=== PATIENT | female | born 1930 | race Caucasian/White ===

== ENCOUNTER 2016-11-16 11:19 | Inpatient (IN) | payer MEDICARE ==
[~2016-11-16] VITALS: Ht 162.6 cm; Wt 52.9 kg
[2016-11-16] VITALS (14 sets, daily range): BP systolic 108–150; BP diastolic 60–92; PULSE 77–100; RESP 12–25; TEMP 97.6–98.1; O2SAT 97–100
[~2016-11-16 11:19] MED LIST: ASPI-110 PO; BUPR150CR PO; CARV6.252 PO; CLOP75TA PO; DEXI30CA PO; ENAL10TA PO; FERR325T PO; FURO1TAB62 PO; ISOS5TAB PO; JANU50TA8 PO; LEVO75TA3 PO; LIPI20TA PO; POTA10TA8 PO; ZOLO100T PO
[2016-11-16] MEDS ORDERED: SODIUM CHLORIDE 0.9% FLUSH 5 ML FLUSH IVF PRN (11:45)
[2016-11-16] MEDS ORDERED: ASPIRIN 325 MG TAB PO ONE (11:45)
[2016-11-16] MEDS ORDERED: ASPIRIN EC 81 MG TABEC PO STA (11:52)
--- NOTE | 2016-11-16 12:01 | PD ---
HPI Chief Complaint: Chest Pain Time Seen by Provider: 11:55 Travel History International Travel<30 days: No Contact w/Intl Traveler<30days: No Traveled to known affect area: No History of Present Illness HPI 86-year-old female that presents to the ED for evaluation of possible heart disease. Patient does have a history of significant heart disease and on April had a catheter that shows severe disease to 3 different arteries. Patient apparently was not a candidate for stenting or for bypass secondary to her dementia, possible cancer as well as other comorbidities. Patient has been treated medically for this. Patient has seen her sociology instructor. Per patient and who provides most of the information she's been having some discomfort in her throat that goes to her chest for the past 3 days but worse last night. Per patient the pain is severe, burning. Comes and goes. Per patient this does not feel anything like her previous time when she was admitted for the heart cath in April but she states that he feels close to it. She denies any shortness of breath. No trauma. No recent travel. Denies any cough or runny nose. She states that her pain is 7 out of 10. She takes Plavix. She denies taking any nitroglycerin. She does have a history of hypertension, diabetes, heart disease on herself as well as all history of smoking. Denies any abdominal pain. No nausea or vomiting. No problems with bowel movements or urine. No numbness, tingling, weakness. PFSH Past Medical History Arthritis: Yes Anxiety: Yes Depression: Yes Cancer: No Cardiac Catheterization: Yes (04/2016) Cardiovascular Problems: Yes High Cholesterol: Yes Congestive Heart Failure: Yes Dementia: Yes Diabetes: Yes Patient Takes Glucophage: No Diminished Hearing: No Endocrine: Yes (hypothyroidism) Gastrointestinal Disorders: Yes GERD: Yes Genitourinary: No Headaches: Yes Hypertension: Yes Implanted Vascular Access Dvce: No Musculoskeletal: Yes (arthritis) Neurologic: Yes Reproductive: No Respiratory: Yes (this admit SOB) Immunizations Current: No Pneumonia: Yes Thyroid Disease: Yes (hypothyroidism) Tetanus Vaccination: < 5 Years Influenza Vaccination: Yes ?: Not Menopausal: Yes : 6 Para: 5 Miscarriage: 1 Tubal Ligation: Yes Past Surgical History Eye Surgery: Yes (BILAT. CATARACTS) Tonsillectomy: Yes Other Surgery: Yes (BACK SX. AND HEMMROIDECTOMY) Social History Alcohol Use: No Tobacco Use: No (QUIT) Substance Use: No Allergies-Medications (Allergen,Severity, Reaction): Coded Allergies: Sulfa (Verified Allergy, Intermediate, Rash, 11/16/16) Macrobid (Unverified Allergy, Unknown, 11/16/16) Hydrocodone (Unverified Adverse Reaction, Mild, nausea, 11/16/16) Reported Meds & Prescriptions Reported Meds & Active Scripts Active Reported Magnesium Oxide 400 Mg Tab 400 Mg PO DAILY @ 1400 Megace Liq (Megestrol Acetate) 40 Mg/Ml Susp 400 Mg PO BID Dexilant (Dexlansoprazole) 60 Mg Cap 60 Mg PO DAILY Levothyroxine (Levothyroxine Sodium) 100 Mcg Tab 100 Mcg PO DAILY Aspirin 81 (Aspirin) 81 Mg Tabdr 81 Mg PO DAILY @ 1400 Janumet (Sitagliptin-Metformin) 50-1,000 Mg Tab 1 Tab PO BID Zoloft (Sertraline HCl) 100 Mg Tab 100 Mg PO DAILY @ 1400 Lipitor (Atorvastatin Calcium) 20 Mg Tab 20 Mg PO HS Isosorbide Dinitrate 5 Mg Tab 5 Mg PO TID Ferrous Sulfate 325 Mg Tab 325 Mg PO DAILY @ 1400 Clopidogrel (Clopidogrel Bisulfate) 75 Mg Tab 75 Mg PO DAILY Carvedilol 6.25 Mg Tab 6.25 Mg PO BID Wellbutrin SR 12 HR (Bupropion HCl) 150 Mg Tab 150 Mg PO DAILY Review of Systems ROS Limitations: Poor Historian Except as stated in HPI: all other systems reviewed are Neg Physical Exam Exam Limitations: Poor Historian Narrative GENERAL: SKIN: Warm and dry. HEAD: Atraumatic. Normocephalic. EYES: Pupils equal and round 4 mm reactive to light and accommodation. No scleral icterus. No injection or drainage. ENT: No nasal bleeding or discharge. Mucous membranes pink and moist. Tongue is midline. No uvula deviation. Tonsils are not enlarged or swollen. No erythema noted. NECK: Trachea midline. No JVD. CARDIOVASCULAR: Regular rate and rhythm. No murmurs, S3, S4. RESPIRATORY: No accessory muscle use. Clear to auscultation. Breath sounds equal bilaterally. GASTROINTESTINAL: Abdomen soft, non-tender, nondistended. Hepatic and splenic margins not palpable. MUSCULOSKELETAL: Extremities without clubbing, cyanosis, or edema. No obvious deformities. Full range of motion of the upper and lower extremities bilaterally. Chest pain is not reproducible with touch. Pupils pulses bilaterally. NEUROLOGICAL: Awake and alert. No obvious cranial nerve deficits. Motor grossly within normal limits. Five out of 5 muscle strength in the arms and legs. Normal speech. PSYCHIATRIC: Demented mood and affect; insight and judgment normal. Data Data Last Documented VS Vital Signs Date Time Temp Pulse Resp B/P Pulse Ox O2 Delivery O2 Flow Rate FiO2 11/16/16 12:05 98 Room Air 11/16/16 12:00 77 135/63 2 11/16/16 11:39 97.9 16 Orders Electrocardiogram (11/16/16 11:34) Basic Metabolic Panel (Bmp) (11/16/16 11:34) Ckmb (Isoenzyme) Profile (11/16/16 11:34) Complete Blood Count With Diff (11/16/16 11:34) Magnesium (Mg) (11/16/16 11:34) Prothrombin Time / Inr (Pt) (11/16/16 11:34) Act Partial Throm Time (Ptt) (11/16/16 11:34) Troponin I (11/16/16 11:34) Chest, Single Ap (11/16/16 11:34) Ecg Monitoring (11/16/16 11:34) Bilateral Bp Monitoring (11/16/16 11:34) Iv Access Insert/Monitor (11/16/16 11:34) Oximetry (11/16/16 11:34) Oxygen Administration (11/16/16 11:34) Aspirin (Aspirin) (11/16/16 11:45) Sodium Chloride 0.9% Flush (Ns Flush) (11/16/16 11:45) Hepatic Functional Panel (11/16/16 11:47) Aspirin Ec (Ecotrin Ec) (11/16/16 11:52) Heparin Infusion NICHOLE.Q1H (11/16/16 12:13) Heparin Inj (Heparin Inj) (11/16/16 12:15) Heparin-D5w Inj (Heparin-D5w Inj) (11/16/16 12:15) Cbc No Diff, Includes Plts (11/19/16 06:00) Act Partial Throm Time (Ptt) (11/16/16 19:13) Occult Blood (Hemoccult) Stool (11/16/16 12:13) Admit Order (Ed Use Only) (11/16/16 12:59) Labs Laboratory Tests Test 11/16/16 11:55 White Blood Count 6.2 TH/MM3 Red Blood Count 3.42 MIL/MM3 Hemoglobin 11.0 GM/DL Hematocrit 31.8 % Mean Corpuscular Volume 93.0 FL Mean Corpuscular Hemoglobin 32.1 PG Mean Corpuscular Hemoglobin 34.5 % Concent Red Cell Distribution Width 15.3 % Platelet Count 190 TH/MM3 Mean Platelet Volume 8.7 FL Neutrophils (%) (Auto) 82.6 % Lymphocytes (%) (Auto) 9.9 % Monocytes (%) (Auto) 5.0 % Eosinophils (%) (Auto) 1.8 % Basophils (%) (Auto) 0.7 % Neutrophils # (Auto) 5.1 TH/MM3 Lymphocytes # (Auto) 0.6 TH/MM3 Monocytes # (Auto) 0.3 TH/MM3 Eosinophils # (Auto) 0.1 TH/MM3 Basophils # (Auto) 0.0 TH/MM3 CBC Comment AUTO DIFF Prothrombin Time 12.6 SEC Prothromb Time International 1.1 RATIO Ratio Activated Partial 22.6 SEC Thromboplast Time Sodium Level 137 MEQ/L Potassium Level 4.2 MEQ/L Chloride Level 107 MEQ/L Carbon Dioxide Level 20.4 MEQ/L Anion Gap 10 MEQ/L Blood Urea Nitrogen 22 MG/DL Creatinine 1.41 MG/DL Estimat Glomerular Filtration 36 ML/MIN Rate Random Glucose 149 MG/DL Calcium Level 8.9 MG/DL Magnesium Level 1.3 MG/DL Total Creatine Kinase 35 U/L Troponin I 0.12 NG/ML MDM Medical Decision Making Medical Screen Exam Complete: Yes Emergency Medical Condition: Yes Medical Record Reviewed: Yes Interpretation(s) CBC & BMP Diagram 11/16/16 11:55 Troponin is elevated at 0.12. CK-MB negative. CXR negative PT and PTT within normal limits. EKG shows sinus rhythm with no sign of acute ischemia. Patient does have new T- wave inversion in lead V3 but otherwise unremarkable from previous. Read by me and attending. Differential Diagnosis ACS versus STEMI versus an STEMI versus unstable angina versus angina versus sore throat versus dysmenorrhea versus electrolyte abnormality versus heart disease Narrative Course 86-year-old female that presents to the ED for evaluation of possible angina. Patient was properly examined and was found to have signs and symptoms consistent with appears to be unstable angina. Patient does have a history significant cardiac history and three-vessel disease. Patient's currently being medically managed. Recommendation at this time is for labs and imaging. My attending Dr. Lebron recommends starting of heparin as well as infusion. This was discussed with the family who agree with plan. Patient will likely be admitted for unstable angina. Family agrees first to proceed with this plan. Initial labs and imaging showed what appears to be in STEMI at this time. My attending recommends admission to medicine. Patient was admitted to Dr. Harper who agrees to admission. Procedures EKG Prior to Arrival: No Diagnosis Primary Impression: NSTEMI (non-ST elevated myocardial infarction) Additional Impression: Acute renal failure Qualified Code: N17.9 - Acute renal failure, unspecified acute renal failure type Admitting Information Admitting Physician Requests: Dimitri Aquino Nov 16, 2016 12:01
[2016-11-16] MEDS ORDERED: LEVO100T5 PO (12:05)
[2016-11-16] MEDS ORDERED: HEPARIN SODIUM - IV 10,000 UNITS/10 ML VIAL IV ONE (12:15)
[2016-11-16] MEDS ORDERED: HEPARIN-D5W INJ 250 ML IV SCH (12:15)
[2016-11-16] MEDS ORDERED: DEXI60CA PO (12:15)
[2016-11-16 12:16] LABS: AUTOMATED NEUTROPHIL # 5.1 TH/MM3 (1.8-7.7); BASOPHIL % 0.7 % (0.0-2.0); EOSINOPHIL # 0.1 TH/MM3 (0-0.4); EOSINOPHIL % 1.8 % (0.0-4.0); HEMATOCRIT 31.8 % (35.0-46.0); LYMPH % 9.9 % (9.0-44.0); LYMPHOCYTE # 0.6 TH/MM3 (1.0-4.8); MEAN CORPUSCULAR HEMOGLOBIN 32.1 PG (27.0-34.0); MEAN CORPUSCULAR HGB CONC 34.5 % (32.0-36.0); NEUT % 82.6 % (16.0-70.0); PLATELET COUNT 190 TH/MM3 (150-450); RED BLOOD COUNT 3.42 MIL/MM3 (4.00-5.30); RED CELL DISTRIBUTION WIDTH 15.3 % (11.6-17.2); WHITE BLOOD COUNT 6.2 TH/MM3 (4.0-11.0)
[2016-11-16] MEDS ORDERED: MAGN400T2 PO (12:16)
[2016-11-16] MEDS ORDERED: MEGE40S PO (12:16)
[2016-11-16 12:20] LABS: APTT (PATIENT) 22.6 SEC (24.3-30.1); HEMO FLAGS AUTO DIFF; INTERNATIONAL NORMALIZED RATIO 1.1 RATIO; PROTHROMBIN TIME - PATIENT 12.6 SEC (9.8-11.6)
[2016-11-16 12:25] LABS: BICARBONATE 20.4 MEQ/L (21.0-32.0); MAGNESIUM 1.3 MG/DL (1.5-2.5); POTASSIUM 4.2 MEQ/L (3.5-5.1)
--- NOTE | 2016-11-16 12:34 | RADRPT ---
EXAM DATE/TIME: 11/16/2016 12:19 [facility] COMPARISON: CHEST SINGLE AP, September 11, 2016, 10:13. INDICATIONS : Chest Pain MEDICAL HISTORY : Hypertension. Dementia SURGICAL HISTORY : Tubal ligation. ENCOUNTER: Initial ACUITY: 1 day PAIN SCORE: 8/10 LOCATION: Bilateral chest FINDINGS: A single view of the chest demonstrates the lungs to be symmetrically aerated without evidence of mas s, infiltrate or effusion. The cardiomediastinal contours are unremarkable. Osseous structures are intact. CONCLUSION: Stable chest with no acute disease Nilton Chu MD on November 16, 2016 at 12:32 Board Certified Radiologist. This report was verified electronically.
--- NOTE | 2016-11-16 12:50 | PD ---
Physical Exam Date Seen by Provider: Nov 16, 2016 Time Seen by Provider: 12:44 Narrative 86-year-old female came to the emergency room brought by her after being awake the entire night from pain in her jaw bilaterally going up to her ears and throat and sometimes traveling down to her chest. Patient has history of coronary artery disease. She had a heart catheterization done in April of last year which showed severe triple vessel disease. However she was not a candidate for CABG because of her poor medical condition and multiple comorbidities. Patient has history of mild dementia and her is giving all the history thoroughly. Currently she does not appear to be in any distress. Patient was seen by my PA and I'm supervising him. Given the story and the classic nature of the pain and its radiation I asked him to start the patient on heparin bolus and drip. She is unstable angina until proven otherwise. Patient would require admission. Blood test results came back and her troponin is bumped. Awaiting for the residents to call back for admission. is aware of this plan and is comfortable with that. Data Data Last Documented VS Vital Signs Date Time Temp Pulse Resp B/P Pulse Ox O2 Delivery O2 Flow Rate FiO2 11/16/16 12:05 98 Room Air 11/16/16 12:00 77 135/63 2 11/16/16 11:39 97.9 16 Orders Electrocardiogram (11/16/16 11:34) Basic Metabolic Panel (Bmp) (11/16/16 11:34) Ckmb (Isoenzyme) Profile (11/16/16 11:34) Complete Blood Count With Diff (11/16/16 11:34) Magnesium (Mg) (11/16/16 11:34) Prothrombin Time / Inr (Pt) (11/16/16 11:34) Act Partial Throm Time (Ptt) (11/16/16 11:34) Troponin I (11/16/16 11:34) Chest, Single Ap (11/16/16 11:34) Ecg Monitoring (11/16/16 11:34) Bilateral Bp Monitoring (11/16/16 11:34) Iv Access Insert/Monitor (11/16/16 11:34) Oximetry (11/16/16 11:34) Oxygen Administration (11/16/16 11:34) Aspirin (Aspirin) (11/16/16 11:45) Sodium Chloride 0.9% Flush (Ns Flush) (11/16/16 11:45) Hepatic Functional Panel (11/16/16 11:47) Aspirin Ec (Ecotrin Ec) (11/16/16 11:52) Heparin Infusion NICHOLE.Q1H (11/16/16 12:13) Heparin Inj (Heparin Inj) (11/16/16 12:15) Heparin-D5w Inj (Heparin-D5w Inj) (11/16/16 12:15) Cbc No Diff, Includes Plts (11/19/16 06:00) Act Partial Throm Time (Ptt) (11/16/16 19:13) Occult Blood (Hemoccult) Stool (11/16/16 12:13) Admit Order (Ed Use Only) (11/16/16 12:59) Labs Laboratory Tests Test 11/16/16 11:55 White Blood Count 6.2 TH/MM3 Red Blood Count 3.42 MIL/MM3 Hemoglobin 11.0 GM/DL Hematocrit 31.8 % Mean Corpuscular Volume 93.0 FL Mean Corpuscular Hemoglobin 32.1 PG Mean Corpuscular Hemoglobin 34.5 % Concent Red Cell Distribution Width 15.3 % Platelet Count 190 TH/MM3 Mean Platelet Volume 8.7 FL Neutrophils (%) (Auto) 82.6 % Lymphocytes (%) (Auto) 9.9 % Monocytes (%) (Auto) 5.0 % Eosinophils (%) (Auto) 1.8 % Basophils (%) (Auto) 0.7 % Neutrophils # (Auto) 5.1 TH/MM3 Lymphocytes # (Auto) 0.6 TH/MM3 Monocytes # (Auto) 0.3 TH/MM3 Eosinophils # (Auto) 0.1 TH/MM3 Basophils # (Auto) 0.0 TH/MM3 CBC Comment AUTO DIFF Differential Comment AUTO DIFF CONFIRMED Tear Drop Cells 1+ Ovalocytes 2+ Prothrombin Time 12.6 SEC Prothromb Time International 1.1 RATIO Ratio Activated Partial 22.6 SEC Thromboplast Time Sodium Level 137 MEQ/L Potassium Level 4.2 MEQ/L Chloride Level 107 MEQ/L Carbon Dioxide Level 20.4 MEQ/L Anion Gap 10 MEQ/L Blood Urea Nitrogen 22 MG/DL Creatinine 1.41 MG/DL Estimat Glomerular Filtration 36 ML/MIN Rate Random Glucose 149 MG/DL Calcium Level 8.9 MG/DL Magnesium Level 1.3 MG/DL Total Bilirubin 0.3 MG/DL Direct Bilirubin 0.1 MG/DL Indirect Bilirubin 0.2 MG/DL Aspartate Amino Transf 13 U/L (AST/SGOT) Alanine Aminotransferase 12 U/L (ALT/SGPT) Alkaline Phosphatase 51 U/L Total Creatine Kinase 35 U/L Troponin I 0.12 NG/ML Total Protein 7.2 GM/DL Albumin 3.5 GM/DL [facility] Supervised Visit with SOFIA: Yes Interpretation(s) Twelve-lead EKG was reviewed by me. Normal sinus rhythm, left axis deviation, LVH, lateral ST and T-wave depression that is unchanged from 05/15/2016. Heart rate of 85 bpm. Critical Care Narrative Aggregate critical care time was 30 minutes. Time to perform other separately billable procedures was not included in the critical care time. My time did not include minutes spent treating any other patients simultaneously or on activities that did not directly contribute to the patient's treatment. The services I provided to this patient were to treat and/or prevent clinically significant deterioration that could result in: Non-STEMI, heparin bolus and drip I provided critical care services requiring my management, as noted below: Chart data review, documentation time, medication orders and management, vital sign assessments/reviewing monitor data, ordering and reviewing lab tests, ordering and interpreting/reviewing x-rays and diagnostic studies, care of the patient and discussion of the patient with the admitting physicians. Juan Lebron MD Nov 16, 2016 12:50
[2016-11-16 13:14] LABS: OVALOCYTES 2+ (NORMAL); SCAN/DIFF AUTO DIFF CONFIRMED
[2016-11-16 13:15] LABS: TEARDROP RBCS 1+ (NORMAL)
[2016-11-16] MEDS ORDERED: ACETAMINOPHEN 325 MG TAB PO PRN (13:15)
[2016-11-16] MEDS ORDERED: GLUCAGON 1 MG/ML VIAL OTHER PRN (13:15)
[2016-11-16] MEDS ORDERED: NALOXONE HCL 0.4 MG/ML AMP IV PRN (13:15)
[2016-11-16] MEDS ORDERED: DEXTROSE 50% IN WATER 50 ML VIAL(D50) IV PUSH PRN (13:15)
[2016-11-16] MEDS ORDERED: SODIUM CHLORIDE 0.9% FLUSH 5 ML FLUSH FLUSH PRN (13:15)
--- NOTE | 2016-11-16 14:27 | EKG ---
Date Performed: 11/16/2016 Time Performed: 11:34:25 PTAGE: 86 years EKG: Sinus rhythm WITH SINUS ARRHYTHMIA LEFT VENTRICULAR HYPERTROPHY AND ST-T CHANGE ABNORMAL ECG Compared to prior tr acing no significant change PREVIOUS TRACING : 09/11/2016 09.53 DOCTOR: Chon Moore Interpretating Date/Time 11/16/2016 14:26:25
[2016-11-16] MEDS: NITROGLYCERIN 2% OINT 1 GM PACKET TOPICAL SCH ×2 (14:47→22:12)
[2016-11-16 14:51] LABS: INDIRECT BILIRUBIN 0.2 MG/DL (0.0-0.8); TOTAL BILIRUBIN ADULT 0.3 MG/DL (0.2-1.0)
[2016-11-16] MEDS: INSULIN ASPART SUPPLEMENTAL SCALE SQ SCH ×2 (16:00→21:00)
[2016-11-16] MEDS: RANOLAZINE 500 MG EXTENDED RELEASE TAB PO SCH ×2 (16:57→22:12)
[2016-11-16] MEDS ORDERED: MAGNESIUM SULFATE 1 GM PREMIX 100 ML IV ONE (17:45)
--- NOTE | 2016-11-16 18:34 | MH ---
cc: CHAR CASTILLO M.D. DATE OF ADMISSION: 11/16/2016 ADMISSION DIAGNOSIS Chest pain, possible unstable angina, history of coronary artery disease. HISTORY OF PRESENT ILLNESS This 86-year white female well-known to undersigned physician has a history of severe coronary artery disease which was diagnosed approximately six months ago. The patient had a cardiac catheterization and it was thought that the patient could benefit from coronary artery bypass graft surgery. However, with her multiple comorbidities it was felt that she would not be a good candidate. Medical management was maximized. The patient has been doing well with regard to her coronary disease, but on the evening prior to admission she began to experience substernal burning sensation and a discomfort which she describes as a pain which radiated up to the bilateral jaws and then up to the bilateral forehead which she described then as a persistent headache. She did not sleep well throughout the whole night and in the morning, she was having persistent symptoms so her brought her to the emergency room for further evaluation and treatment. She had no shortness of breath or diaphoresis. There was no nausea. The patient states that she has had similar episodes which she thought were relayed to her gastroesophageal reflux disease, but they were never this severe. The patient has been taking her Dexilant for her gastroesophageal reflux disease. The patient has been compliant with all of her other medications. History is difficult due to the patient's dementia. She has difficulty with recalling all the specifics of the events over the last several days. At the current time, she reports that she had no chest pain at all but she does have a discomfort in her throat when she swallows or cough but there has been no persistent chest pain otherwise. The patient denies any abdominal pain. She has had no nausea. Her bowels have been moving well. She has a diminished appetite which has been chronic for the last year. She has lost a considerable amount of weight. She is currently on Megestrol as an appetite stimulant. She has been sleeping well. She is anxious at times which is associated with her dementia. She also has instability of gait and intermittent benign positional vertigo. She has fallen multiple times at home as she forgets to use her walker. She has been through a course of physical therapy but has reached maximum medical improvement according to therapy. She has had no sputum production, fever, chills, night sweats. She has had no visual changes, tremors or lateralizing neurologic deficits. PAST MEDICAL HISTORY 1. Coronary artery disease as mentioned above. on your view as 2. Collagenase colitis which is in remission 3. Diabetes, 4. Hypertension, 5. Hyperlipidemia, 6. Generalized anxiety disorder, 7. Gastroesophageal reflux disease, 8. Hypothyroidism, 9. Significant weight loss over the last year for which she is undergoing a GI evaluation. Her recent upper endoscopy and colonoscopy were unremarkable. She recently had a capsule endoscopy performed and the results are pending. 10. History of peptic ulcer disease. 11. History of urethral strictures 12. Diverticulosis, 13. Hemorrhoids 14. Cervical and lumbar disk disease with intermittent radiculitis 15. Generalized osteoarthritis 16. Hiatal hernia, 17. Depression, 18. History of esophageal strictures 19. Intermittent benign positional vertigo 20. History of a C6-7 cervical fusion 21. Partial knee replacement in 2003. 22. Recent cardiac catheterization revealed severe three-vessel atherosclerotic heart disease with severe left main bifurcation stenosis. Moderate left ventricular dysfunction with ejection fraction of approximately 40%. 23. Recent history of iron deficiency anemia for she receives iron supplement and is undergoing the GI evaluation. 24. History of moderate mild to moderate dementia. MEDICATIONS Current are as follows 1. Magnesium oxide 400 mg daily. 2. Wellbutrin XL 150 mg daily. 3. Sertraline 100 mg daily 4. Megestrol 400 mg twice daily, 5. Carvedilol 6.25 mg twice daily 6. Janumet mg 1 tablet twice daily, 7. Atorvastatin 20 mg daily, 8. Ferrous sulfate 325 mg daily, 9. Isosorbide dinitrate 5 mg three times daily 10. Aspirin 81 mg 1 tablet daily, 11. Plavix 75 mg 1 tablet daily 12. Dexilant 60 mg 1 capsule daily 13. Levofloxacin 100 mcg daily. ALLERGIES HYDROCODONE - GI UPSET MACROBID - NAUSEA SULFA - UNKNOWN REACTION FAMILY HISTORY Noncontributory SOCIAL HISTORY She is , retired. She does not smoke, but she did smoke in the past. She does not drink alcohol. She currently lives with her . REVIEW OF SYSTEMS Negative except as outlined above in HPI. PHYSICAL EXAMINATION VITAL SIGNS: Blood pressure currently is 127/65, heart rate 96, respirations 20, oxygen saturation on 2 liters per minute per nasal cannula is 100%. GENERAL: This is a think, frail elderly white female lying in bed in no acute distress. HEENT: Pupils equal, round, react to light. Extraocular movements are intact. Sclerae aniteric. Conjunctive were pink. Nares patent without discharge. Mouth and throat reveal moist mucous membranes. No erythema or exudates. NECK: Supple without lymphadenopathy, JVD, bruits or thyromegaly. CARDIOVASCULAR: Regular rate and rhythm without murmurs, rubs or gallops. LUNGS: Clear to auscultation without wheezes, rhonchi or rales. ABDOMEN: Soft, nontender, nondistended with bowel sounds present no mass palpable, no hepatosplenomegaly. GENITOURINARY/RECTAL: Deferred. EXTREMITIES: Lower extremities Reveal no appreciable edema, 2+ distal pulses. No calf tenderness. No Homans' sign. SKIN: Warm and dry. Turgor is adequate. The skin is generally dry. NEUROLOGIC: The patient is awake and alert. She is oriented to person, place but not to time. Speech is intact. Cranial nerves intact. She has some mild short-term memory deficits. She is essentially at her baseline. LABORATORY DATA White blood count is 6.2, hemoglobin 11.0, hematocrit 31.8, platelet count normal at 190,000. Basic metabolic profile was significant for carbon dioxide of 20.4, BUN was 22, creatinine 1.41. The glucose is 149, magnesium was low at 1.3. Troponin was 0.12 which was elevated but CK was normal at 35. The INR was 1.1, APTT 22.6. IMAGING STUDIES Chest x-ray revealed stable chest with no acute disease. CARDIOLOGY STUDIES EKG showed sinus rhythm with a rate of 85 beats per minute, axis was -5 degrees. There are changes consistent with LVH with a strain pattern in the V3-V6. The EKG is not significantly changed from prior study. IMPRESSION AND PLAN 1. This 86-year white female presents with substernal chest pain radiating to bilateral jaw. Her troponin was elevated, so we must consider the possibility of underlying cardiac etiology. The patient was given nitroglycerin paste, was placed on a heparin drip by the emergency department physician's legal administrative assistant. The patient will be admitted for rule out acute coronary syndrome. We will perform serial EKGs and cardiac enzymes. Based on the patient's clinical presentation, this is an atypical presentation for acute coronary syndrome but the patient does have diabetes which could alter her presentation. I have consulted Cardiology and Dr. Deglado has seen the patient as he is covering for the patient's dehairer, Dr. Bagley. He has started Ranexa. We will monitor the patient closely for any recurrent chest discomfort. Other possible etiologies include gastroesophageal reflux disease with esophageal spasm. I am going to continue the patient on PPI in the form of pantoprazole as Dexilant is not formulary. We will add some Carafate to the patient's regimen to see if we can treat underlying esophagitis. The patient will be placed on a heart healthy diet and continue with supplemental oxygen. She will be placed in the cardiac intensive care unit with close monitoring of her telemetry. 2. History of diabetes. The patient will continue with Januvia and metformin. We will monitor her blood sugars with bedside glucose monitoring, provide a sliding scale of NovoLog insulin if needed. 3. History of hypothyroidism. The patient had a TSH that was elevated during her last hospitalization. Her thyroid dosage was adjusted. We will repeat a TSH in the morning and adjust dosage to maintain therapeutic replacement as needed. 4. History of iron-deficiency anemia. The patient is undergoing a workup and she just completed a capsule endoscopy and the results are not available as of yet. We will continue with the ferrous sulfate, check iron levels. The hemoglobin is still low but overall stable. 5. Dementia with anxiety. The patient's mental status is at baseline. At this point, I would like to continue with the Wellbutrin and sertraline. The patient does not appear to be anxious at this point. If necessary, we will provide her with some alprazolam. 6. Loss of appetite/weight loss. The patient will continue with Megesterol. We will monitor intake and output closely. 6. Hypomagnesemia. The patient will continue with magnesium oxide 40 mg daily. We will repeat a magnesium level in the morning and adjust dosage as needed. May need to give some IV magnesium as oral magnesium a contribute to loose stools. I have explained the patient's condition to both the patient and her son, daughter and son-in-law who are at the bedside. All expressed understanding and agreement with the plan of care. MD AMRITA Tristan/ /5:22 PM /5:56 PM
[2016-11-16] MEDS ORDERED: ALUMINUM/MAGNESIUM/SIMETH 30 ML CUP PO PRN (19:15)
[2016-11-16] MEDS: SODIUM CHLORIDE 0.9% FLUSH 5 ML FLUSH FLUSH SCH (21:00)
[2016-11-16] MEDS: metFORMIN HCL 500 MG TAB PO SCH (22:11)
[2016-11-16] MEDS: ATORVASTATIN 20 MG TAB PO SCH (22:12)
[2016-11-16] MEDS: SUCRALFATE 1 GM/10 ML CUP PO SCH (22:12)
[2016-11-16] MEDS: MEGESTROL ACETATE SUSP 400 MG/10 ML CUP PO SCH (22:12)
[2016-11-16] MEDS: CARVEDILOL 6.25 MG TAB PO SCH (22:13)
[2016-11-17] VITALS (23 sets, daily range): BP systolic 89–130; BP diastolic 60–73; PULSE 78–99; RESP 16–18; TEMP 97.7–97.9; O2SAT 97–99
[2016-11-17 02:44] LABS: APTT (PATIENT) 35.1 SEC (24.3-30.1)
[2016-11-17 04:46] LABS: ALKALINE PHOSPHATASE 48 U/L (45-117); ALT (GPT) 10 U/L (10-53); ANION GAP 9 MEQ/L (5-15); AST (GOT) 8 U/L (15-37); BICARBONATE 22.3 MEQ/L (21.0-32.0); BLOOD UREA NITROGEN 19 MG/DL (7-18); CHLORIDE 106 MEQ/L (98-107); FERRITIN 70 NG/ML (8-252); GLOMERULAR FILTRATION RATE 46 ML/MIN (>89); HDL CHOLESTEROL 25.5 MG/DL (40.0-60.0); LDL CHOLESTEROL 58 MG/DL (0-99); MAGNESIUM 1.5 MG/DL (1.5-2.5); POTASSIUM 3.9 MEQ/L (3.5-5.1); SODIUM (NA) 137 MEQ/L (136-145); TOTAL BILIRUBIN ADULT 0.3 MG/DL (0.2-1.0); TRANSFERRIN IRON PROFILE 215 MG/DL (200-360)
[2016-11-17] MEDS: INSULIN ASPART SUPPLEMENTAL SCALE SQ SCH ×4 (07:00→21:00)
[2016-11-17] MEDS: NITROGLYCERIN 2% OINT 1 GM PACKET TOPICAL SCH ×3 (07:15→22:24)
[2016-11-17] MEDS: SUCRALFATE 1 GM/10 ML CUP PO SCH ×4 (07:15→22:23)
[2016-11-17] MEDS: LEVOTHYROXINE SODIUM 100 MCG TAB PO SCH (07:15)
[2016-11-17] MEDS: MAGNESIUM OXIDE 400 MG TAB PO SCH (09:22)
[2016-11-17] MEDS: FERROUS SULFATE 325 MG (65 MG ELEMENTAL IRON) TAB PO SCH (09:22)
[2016-11-17] MEDS: ASPIRIN EC 81 MG TABEC PO SCH (09:22)
[2016-11-17] MEDS: MEGESTROL ACETATE SUSP 400 MG/10 ML CUP PO SCH ×2 (09:22→22:24)
[2016-11-17] MEDS: CLOPIDOGREL 75 MG TAB PO SCH (09:22)
[2016-11-17] MEDS: PANTOPRAZOLE SOD 40 MG DELAYED RELEASE TAB PO SCH (09:22)
[2016-11-17] MEDS: CARVEDILOL 6.25 MG TAB PO SCH ×2 (09:22→22:24)
[2016-11-17] MEDS: SERTRALINE HCL 100 MG TAB PO SCH (09:22)
[2016-11-17] MEDS: buPROPion HCL 150 MG SUSTAINED RELEASE TAB PO SCH (09:22)
[2016-11-17] MEDS: SODIUM CHLORIDE 0.9% FLUSH 5 ML FLUSH FLUSH SCH ×2 (09:23→22:24)
[2016-11-17] MEDS: RANOLAZINE 500 MG EXTENDED RELEASE TAB PO SCH ×2 (09:23→22:22)
[2016-11-17] MEDS: metFORMIN HCL 500 MG TAB PO SCH ×2 (09:23→22:22)
--- NOTE | 2016-11-17 09:45 | PD.CARD.PN ---
Subjective Subjective Remarks Having pain on swallowing food coffee. Not sure if angina Objective Vital Signs / I&O Vital Signs Date Time Temp Pulse Resp B/P Pulse Ox O2 Delivery O2 Flow Rate FiO2 11/17/16 06:00 78 11/17/16 05:00 81 11/17/16 04:00 81 11/17/16 03:00 97.8 84 16 130/73 98 11/17/16 03:00 82 11/17/16 02:00 78 11/17/16 01:00 80 11/17/16 00:00 80 11/16/16 23:00 78 11/16/16 23:00 98.1 84 12 108/70 97 11/16/16 22:00 79 11/16/16 21:00 84 11/16/16 20:00 100 11/16/16 19:45 97.6 88 16 121/74 98 11/16/16 19:00 84 11/16/16 17:45 82 11/16/16 17:45 98.0 82 18 135/69 99 11/16/16 17:02 96 20 127/65 100 Nasal Cannula 2 11/16/16 16:00 82 16 141/ 100 Room Air 2 11/16/16 14:00 80 25 135/60 100 Room Air 2 11/16/16 12:05 98 Room Air 11/16/16 12:00 77 135/63 97 Nasal Cannula 2 11/16/16 11:59 77 135/63 11/16/16 11:50 98 Nasal Cannula 2 11/16/16 11:39 97.9 82 16 150/92 98 Room Air 11/16/16 11:39 83 150/92 11/16/16 11:24 11/16/16 11:20 97.9 90 15 132/62 97 I/O 11/16/16 11/16/16 11/16/16 11/17/16 11/17/16 11/17/16 07:00 15:00 23:00 07:00 15:00 23:00 Intake Total 525 ml Output Total 300 ml Balance 225 ml Intake Oral 480 ml IV Total 45 ml Output Urine Total 300 ml # Bowel Movements 0 Physical Exam CONSTITUTIONAL: A well-developed, well-nourished patient in no apparent distress. EYES: Conjunctiva normal. Sclera nonicteric. Eyelids normal. No xanthelasma. HEENT: Oral mucosa normal without pallor or cyanosis. NECK: JVD less than or equal to 5 cm of water. RESPIRATORY: Breathing is unlabored without accessory muscle use. Normal breath sounds. No wheezes, rales or rubs present. CARDIOVASCULAR: Normal point of maximal impulse. No cardiac thrill present. Regular rate and rhythm. No murmurs, gallops, rubs or clicks present. PERIPHERAL CIRCULATION: No cyanosis, clubbing, edema or varicosities present. GASTROINTESTINAL: Normal bowel sounds. Nontender without rigidity or guarding. No masses present. No hepatomegaly. Liver is nontender to palpation and spleen is nonpalpable. Digital rectal exam - not indicated for cardiovascular exam. MUSCULOSKELETAL: No kyphosis or scoliosis present. The patient is not ambulated. Able to undergo rehabilitation. SKIN: Skin turgor is normal. No rashes. NEUROLOGICAL: Grossly oriented to person, place and time. Normal mood and appropriate affect. Laboratory Laboratory Tests Test 11/16/16 11/16/16 11/16/16 11/17/16 11:55 19:13 23:45 01:20 White Blood Count 6.2 TH/MM3 Red Blood Count 3.42 MIL/MM3 Hemoglobin 11.0 GM/DL Hematocrit 31.8 % Mean Corpuscular Volume 93.0 FL Mean Corpuscular Hemoglobin 32.1 PG Mean Corpuscular Hemoglobin 34.5 % Concent Red Cell Distribution Width 15.3 % Platelet Count 190 TH/MM3 Mean Platelet Volume 8.7 FL Neutrophils (%) (Auto) 82.6 % Lymphocytes (%) (Auto) 9.9 % Monocytes (%) (Auto) 5.0 % Eosinophils (%) (Auto) 1.8 % Basophils (%) (Auto) 0.7 % Neutrophils # (Auto) 5.1 TH/MM3 Lymphocytes # (Auto) 0.6 TH/MM3 Monocytes # (Auto) 0.3 TH/MM3 Eosinophils # (Auto) 0.1 TH/MM3 Basophils # (Auto) 0.0 TH/MM3 CBC Comment AUTO DIFF Differential Comment AUTO DIFF CONFIRMED Tear Drop Cells 1+ Ovalocytes 2+ Prothrombin Time 12.6 SEC Prothromb Time International 1.1 RATIO Ratio Activated Partial 22.6 SEC 43.0 SEC 35.1 SEC Thromboplast Time Sodium Level 137 MEQ/L Potassium Level 4.2 MEQ/L Chloride Level 107 MEQ/L Carbon Dioxide Level 20.4 MEQ/L Anion Gap 10 MEQ/L Blood Urea Nitrogen 22 MG/DL Creatinine 1.41 MG/DL Estimat Glomerular Filtration 36 ML/MIN Rate Random Glucose 149 MG/DL Calcium Level 8.9 MG/DL Magnesium Level 1.3 MG/DL Total Bilirubin 0.3 MG/DL Direct Bilirubin 0.1 MG/DL Indirect Bilirubin 0.2 MG/DL Aspartate Amino Transf 13 U/L (AST/SGOT) Alanine Aminotransferase 12 U/L (ALT/SGPT) Alkaline Phosphatase 51 U/L Total Creatine Kinase 35 U/L 26 U/L 28 U/L Troponin I 0.12 NG/ML 0.12 NG/ML 0.14 NG/ML Total Protein 7.2 GM/DL Albumin 3.5 GM/DL Test 11/17/16 03:55 Sodium Level 137 MEQ/L Potassium Level 3.9 MEQ/L Chloride Level 106 MEQ/L Carbon Dioxide Level 22.3 MEQ/L Anion Gap 9 MEQ/L Blood Urea Nitrogen 19 MG/DL Creatinine 1.12 MG/DL Estimat Glomerular Filtration 46 ML/MIN Rate Random Glucose 122 MG/DL Calcium Level 8.2 MG/DL Magnesium Level 1.5 MG/DL Iron Level 40 MCG/DL Total Iron Binding Capacity 301 MCG/DL Percent Iron Saturation 13.3 % Ferritin 70 NG/ML Total Bilirubin 0.3 MG/DL Aspartate Amino Transf 8 U/L (AST/SGOT) Alanine Aminotransferase 10 U/L (ALT/SGPT) Alkaline Phosphatase 48 U/L Total Protein 6.5 GM/DL Albumin 3.1 GM/DL Triglycerides Level 114 MG/DL Cholesterol Level 106 MG/DL LDL Cholesterol 58 MG/DL HDL Cholesterol 25.5 MG/DL Cholesterol/HDL Ratio 4.15 RATIO Thyroid Stimulating Hormone 1.440 uIU/ML 3rd Gen Assessment and Plan Assessment and Plan Overall stable, Dr Morejon will follow up tomorrow Geetha Delgado MD Nov 17, 2016 09:45
--- NOTE | 2016-11-17 09:48 | HHI.PR ---
Subjective Remarks Complains of discomfort in throat area with swallowing. Worse with solids than liquids. No radiation to the jaw like she stated at admission. Complains of "indigestion" when she eats. Receiving Pantoprazole and Carafate ( Second dose given this am). Serial EKG and Cardiac enzymes reveal stable elevations Troponin but EKG and CK unchanged. Blood sugar under adequate control Current Medications Medications (Trade) Dose Ordered Sig/Vivek Route Start Time Stop Time Status Last Admin (Heparin-D5W Inj) 250 ml @ 0 mls/hr TITRATE IV 11/16/16 12:15 11/16/16 13:06 (NS Flush) 2 ml UNSCH PRN FLUSH 11/16/16 13:15 (NS Flush) 2 ml BID FLUSH 11/16/16 21:00 11/17/16 09:23 (Narcan Inj) 0.4 mg UNSCH PRN IV 11/16/16 13:15 (Nitroglycerin 2% Oint) 1 inch Q8HR TOPICAL 11/16/16 14:00 11/17/16 07:15 (Tylenol) 650 mg Q4H PRN PO 11/16/16 13:15 (D50w (Vial) Inj) 25 ml UNSCH PRN IV PUSH 11/16/16 13:15 (Glucagon Inj) 1 mg UNSCH PRN OTHER 11/16/16 13:15 (Ecotrin Ec) 81 mg DAILY PO 11/17/16 09:00 11/17/16 09:22 (Lipitor) 20 mg HS PO 11/16/16 21:00 11/16/16 22:12 (Wellbutrin Sr) 150 mg DAILY PO 11/17/16 09:00 11/17/16 09:22 (Coreg) 6.25 mg BID PO 11/16/16 21:00 11/17/16 09:22 (Plavix) 75 mg DAILY PO 11/17/16 09:00 11/17/16 09:22 (Ferrous Sulfate) 325 mg DAILY PO 11/17/16 09:00 11/17/16 09:22 (Synthroid) 100 mcg DAILY@07 PO 11/17/16 07:00 11/17/16 07:15 (Mag-Ox) 400 mg DAILY PO 11/17/16 09:00 11/17/16 09:22 (Megace Liq) 400 mg BID PO 11/16/16 21:00 11/17/16 09:22 (Zoloft) 100 mg DAILY PO 11/17/16 09:00 11/17/16 09:22 (Glucophage) 1,000 mg BID PO 11/16/16 21:00 11/17/16 09:23 (Protonix) 40 mg DAILY PO 11/17/16 09:00 11/17/16 09:22 (Januvia) 50 mg BID PO 11/16/16 21:00 11/17/16 09:22 (Ranexa) 500 mg Q12HR PO 11/16/16 16:00 11/17/16 09:23 (Carafate Liq) 1 gm ACHS PO 11/16/16 21:00 11/17/16 07:15 (Mag-Al Plus Susp Liq) 30 ml Q2H PRN PO 11/16/16 19:15 11/16/16 19:15 Objective Vital Signs Date Time Temp Pulse Resp B/P Pulse Ox O2 Delivery O2 Flow Rate FiO2 11/17/16 06:00 78 11/17/16 05:00 81 11/17/16 04:00 81 11/17/16 03:00 97.8 84 16 130/73 98 11/17/16 03:00 82 11/17/16 02:00 78 11/17/16 01:00 80 11/17/16 00:00 80 11/16/16 23:00 78 11/16/16 23:00 98.1 84 12 108/70 97 11/16/16 22:00 79 11/16/16 21:00 84 11/16/16 20:00 100 11/16/16 19:45 97.6 88 16 121/74 98 11/16/16 19:00 84 11/16/16 17:45 82 11/16/16 17:45 98.0 82 18 135/69 99 11/16/16 17:02 96 20 127/65 100 Nasal Cannula 2 11/16/16 16:00 82 16 141/ 100 Room Air 2 11/16/16 14:00 80 25 135/60 100 Room Air 2 11/16/16 12:05 98 Room Air 11/16/16 12:00 77 135/63 97 Nasal Cannula 2 11/16/16 11:59 77 135/63 11/16/16 11:50 98 Nasal Cannula 2 11/16/16 11:39 97.9 82 16 150/92 98 Room Air 11/16/16 11:39 83 150/92 11/16/16 11:24 11/16/16 11:20 97.9 90 15 132/62 97 I/O 11/16/16 11/16/16 11/16/16 11/17/16 11/17/16 11/17/16 07:00 15:00 23:00 07:00 15:00 23:00 Intake Total 525 ml Output Total 300 ml Balance 225 ml Intake Oral 480 ml IV Total 45 ml Output Urine Total 300 ml # Bowel Movements 0 Gen: NAD Mouth/Throat: mild erythema of posterior oropharynx but no exudates. MMM Neck: Supple without LA, JVD, thyromegaly, trachea midline. No tenderness to palpation CV: RRR Lungs: CTA Abd: soft, NT, ND, +BS Ext: No edema Result Diagram: 11/16/16 1155 11/17/16 0355 Other Results Laboratory Tests Test 11/16/16 11/16/16 11/16/16 11/17/16 11:55 19:13 23:45 01:20 White Blood Count 6.2 TH/MM3 Red Blood Count 3.42 MIL/MM3 Hemoglobin 11.0 GM/DL Hematocrit 31.8 % Mean Corpuscular Volume 93.0 FL Mean Corpuscular Hemoglobin 32.1 PG Mean Corpuscular Hemoglobin 34.5 % Concent Red Cell Distribution Width 15.3 % Platelet Count 190 TH/MM3 Mean Platelet Volume 8.7 FL Neutrophils (%) (Auto) 82.6 % Lymphocytes (%) (Auto) 9.9 % Monocytes (%) (Auto) 5.0 % Eosinophils (%) (Auto) 1.8 % Basophils (%) (Auto) 0.7 % Neutrophils # (Auto) 5.1 TH/MM3 Lymphocytes # (Auto) 0.6 TH/MM3 Monocytes # (Auto) 0.3 TH/MM3 Eosinophils # (Auto) 0.1 TH/MM3 Basophils # (Auto) 0.0 TH/MM3 CBC Comment AUTO DIFF Differential Comment AUTO DIFF CONFIRMED Tear Drop Cells 1+ Ovalocytes 2+ Prothrombin Time 12.6 SEC Prothromb Time International 1.1 RATIO Ratio Activated Partial 22.6 SEC 43.0 SEC 35.1 SEC Thromboplast Time Sodium Level 137 MEQ/L Potassium Level 4.2 MEQ/L Chloride Level 107 MEQ/L Carbon Dioxide Level 20.4 MEQ/L Anion Gap 10 MEQ/L Blood Urea Nitrogen 22 MG/DL Creatinine 1.41 MG/DL Estimat Glomerular Filtration 36 ML/MIN Rate Random Glucose 149 MG/DL Calcium Level 8.9 MG/DL Magnesium Level 1.3 MG/DL Total Bilirubin 0.3 MG/DL Direct Bilirubin 0.1 MG/DL Indirect Bilirubin 0.2 MG/DL Aspartate Amino Transf 13 U/L (AST/SGOT) Alanine Aminotransferase 12 U/L (ALT/SGPT) Alkaline Phosphatase 51 U/L Total Creatine Kinase 35 U/L 26 U/L 28 U/L Troponin I 0.12 NG/ML 0.12 NG/ML 0.14 NG/ML Total Protein 7.2 GM/DL Albumin 3.5 GM/DL Test 11/17/16 03:55 Sodium Level 137 MEQ/L Potassium Level 3.9 MEQ/L Chloride Level 106 MEQ/L Carbon Dioxide Level 22.3 MEQ/L Anion Gap 9 MEQ/L Blood Urea Nitrogen 19 MG/DL Creatinine 1.12 MG/DL Estimat Glomerular Filtration 46 ML/MIN Rate Random Glucose 122 MG/DL Calcium Level 8.2 MG/DL Magnesium Level 1.5 MG/DL Iron Level 40 MCG/DL Total Iron Binding Capacity 301 MCG/DL Percent Iron Saturation 13.3 % Ferritin 70 NG/ML Total Bilirubin 0.3 MG/DL Aspartate Amino Transf 8 U/L (AST/SGOT) Alanine Aminotransferase 10 U/L (ALT/SGPT) Alkaline Phosphatase 48 U/L Total Protein 6.5 GM/DL Albumin 3.1 GM/DL Triglycerides Level 114 MG/DL Cholesterol Level 106 MG/DL LDL Cholesterol 58 MG/DL HDL Cholesterol 25.5 MG/DL Cholesterol/HDL Ratio 4.15 RATIO Thyroid Stimulating Hormone 1.440 uIU/ML 3rd Gen Assessment and Plan Problem List: (1) Chest pain Status: Acute Plan: The patient had upper chest pain radiating to neck and bilateral jaw at admission. With history of ASHD admitted to rule out ACS. Ischemia appears to have been ruled out. Confusing clinical picture as patient now reports discomfort only with swallowing. Cont Nitropaste, Carvedilol. Ranexa and Aspirin. Will ask PT to ambulate patient today to see if any chest pain or increased neck pain with exertion. If not then will discontinue heparin drip. Discussed with Dr. Delgado on floor (2) Odynophagia Status: Acute Plan: The patient's complaint seems to be more related to painful swallowing. She has been receiving PPI prior to admission and I started Carafate at admission as I suspected GI component to chest pain complaint. She recently had EGD and colonoscopy as outpatient as part of GI workup for Iron deficiency anemai and weight loss. Had capsule endoscopy. Results pending. Will consult GI to see if any other suggesting for treatment discomfort with swallowing (3) Iron deficiency anemia Status: Acute Plan: patient has been receiving ferrous sulfate as outpatient. Ferritin improved but Iron still low. H&H stable (4) Hypothyroidism Status: Chronic Plan: Therapeutic replacement of thyroid (5) Diabetes mellitus Status: Chronic Plan: Adequate control with current Rx (6) Dementia Status: Chronic Plan: Stable (7) Anxiety, generalized Status: Acute (8) Hypomagnesemia Status: Resolved Plan: Will follow Magnesium level (9) Hyperlipidemia Status: Chronic Plan: Cont Statin therapy (10) Kidney disease, chronic, stage III (GFR 30-59 ml/min) Status: Chronic Plan: Stable renal function Problem Qualifiers (1) Chest pain: Qualified Code: R07.9 - Chest pain, unspecified type (2) Iron deficiency anemia: Qualified Code: D50.9 - Iron deficiency anemia, unspecified iron deficiency anemia type (3) Hypothyroidism: Qualified Code: E03.9 - Hypothyroidism, unspecified type (4) Diabetes mellitus: Qualified Code: E11.9 - Type 2 diabetes mellitus without complication, without long-term current use of insulin (5) Dementia: Qualified Code: G30.1 - Late onset Alzheimer's disease without behavioral disturbance (6) Hyperlipidemia: Qualified Code: E78.2 - Mixed hyperlipidemia Joseph Livingston MD Nov 17, 2016 09:48
[2016-11-17 10:33] LABS: APTT (PATIENT) 38.4 SEC (24.3-30.1)
--- NOTE | 2016-11-17 13:23 | HHI.GIFU ---
GI Follow-up Note Consult Follow-up Full consult dictated: 1. Odynophagia 2. Weight loss 3. Iron def anemia 4. CAD 5. Recent Pill cam (not sure if it has passed) PLAN: 1. START Zofran 4 mg ODT 20-30 min prior to meals 2. START Nystatin 15 ml swish and swallow tid x 1 wk 3. PPI once per day 4. Ok for Carafate tid 5. nutritional supplementation as tolerated 6. Pt already had egd and colon recently with Dr Meng therefore no urgent plan for endoscopy 7. Abdo xray to ensure pill cam passed. It was a pleasure seeing Neva Mishra. Thank you for this consult. Entered by: Monica Fairbanks MD Nov 17, 2016 13:23
--- NOTE | 2016-11-17 13:38 | EKG ---
Date Performed: 11/17/2016 Time Performed: 01:16:26 PTAGE: 86 years EKG: Possible ectopic atrial rhythm LVH with secondary repolarization abnormality Extensive ST-T changes may be due to hypertrophy and/or ischemia Compared to prior tracing no significant change Ab normal ECG PREVIOUS TRACING : 11/16/2016 11.34 DOCTOR: Chon Moore Interpretating Date/Time 11/17/2016 13:36:16
--- NOTE | 2016-11-17 14:28 | RADRPT ---
EXAM DATE/TIME: 11/17/2016 13:56 [facility] COMPARISON: No previous studies available for comparison. INDICATIONS : Evaluate abdomen to see if patient has passed pill camera. MEDICAL HISTORY : None. SURGICAL HISTORY : Tubal ligation. ENCOUNTER: Initial ACUITY: 1 day PAIN SCORE: 0/10 LOCATION: All quadrants. FINDINGS: Examination of the abdomen demonstrates a normal bowel gas pattern. No free air is identified. No o rganomegaly is evident. Osseous structures are intact. CONCLUSION: Normal examination. Nirav Yanes MD on November 17, 2016 at 14:27 Board Certified Radiologist. This report was verified electronically.
[2016-11-17] MEDS: ONDANSETRON ODT 4 MG TAB PO SCH ×2 (16:00→22:22)
[2016-11-17] MEDS: NYSTATIN SUSP 500,000 U/5 ML CUP SWISH-SWAL SCH ×2 (18:00→22:23)
--- NOTE | 2016-11-17 18:18 | MB ---
cc: [facility] DATE OF CONSULTATION: 11/17/2016. REASON FOR CONSULTATION: Odynophagia, dysphagia, weight loss. HISTORY OF PRESENT ILLNESS: This is a very pleasant 86-year female who came into the hospital complaining of having chest pain, odynophagia, and symptoms radiating up to the jaw and history of coronary artery disease. She was brought into the hospital. Further workup was performed showing no clear cardiac causes found and therefore GI was consulted for further help and evaluation for her odynophagia. She has been having issues with swallowing difficulty, particularly regurgitation, change in her taste and weight loss. She has undergone EGD and colonoscopy as outpatient for her chronic iron deficiency anemia. She also underwent a capsule endoscopy to evaluate her small bowel for any pathology. PAST MEDICAL HISTORY: 1. Coronary disease. 2. Distant history of collagenous colitis. 3. Diabetes mellitus. 4. Hypertension. 5. Dyslipidemia. 6. History of Gastroesophageal reflux disease (GERD). 7. Distant history of peptic ulcer disease. 8. Diverticulosis. 9. Coronary artery disease with atherosclerotic heart disease. PAST SURGICAL HISTORY: As above. MEDICATIONS: Please see me MAR for complete accurate list. ALLERGIES: 1. HYDROCODONE. 2. MACROBID. 3. SULFA. FAMILY HISTORY: No GI bleeding. SOCIAL HISTORY: The patient denies any tobacco use, alcohol use or illicit drug use. She lives with her . REVIEW OF SYSTEMS: A twelve-point review of systems was obtained and was negative or noncontributory except for the above-mentioned in the history of present illness. PHYSICAL EXAMINATION: VITAL SIGNS: Vital signs are 97.8, 82, 16, 130/73 and 98% on room air. GENERAL: Alert and oriented. No focal deficits noted and in no acute distress. HEAD, EYES, EARS, NOSE, THROAT: Pupils equal, round, reactive to light. NECK: Supple and nontender. No carotid bruits. No jugular venous distention noted. RESPIRATORY: Lungs are clear. Respirations nonlabored. Breath sounds are equal. CARDIOVASCULAR: Normal rate, irregular rhythm. No murmur. ABDOMEN: The abdomen is soft, nontender and nondistended. Bowel sounds heard in all four quadrants. GENITOURINARY: No costovertebral angle tenderness noted. LYMPHATIC: No lymphadenopathy noted. MUSCULOSKELETAL: Normal range of motion. Equal strength upper and lower extremities. SKIN: Warm, dry and intact. NEUROLOGIC: Alert and oriented. No focal deficits. PSYCHIATRIC: Cooperative and appropriate mood and affect. LABS: White blood cell count 6.2, hemoglobin 11.0, MCV 93, platelet count of 190,000. Sodium 137, potassium 3.9, chloride 103, bicarbonate 22, BUN 19, creatinine 1.12. Iron saturation 13. Total bilirubin 0.3. AST 8, ALT 10, alkaline phosphatase 48. Troponin 0.12, 0.12 and 0.14. INR 1.1. IMPRESSION: 1. Odynophagia with mild regurgitation, etiology may be multifactorial. Possibility of oral candidiasis or esophageal candidiasis versus chronic Gastroesophageal reflux disease (GERD). 2. Elevated cardiac enzyme with chest pain. Evaluated by cardiology. No acute intervention is needed. 3. Weight loss. Workup is in process including EGD, colonoscopy and capsule endoscopy with no clear etiology found. 4. Gastroesophageal reflux disease (GERD). 5. Iron deficiency anemia. RECOMMENDATIONS: 1. Recommend Zofran 4 milligrams oral disintegrating tablets q.a.c. about twenty to thirty minutes prior to meals. 2. Recommend nutritional supplements. 3. Will start empiric Nystatin 5 mL three times a day swish and swallow. 4. The patient has already undergone a recent endoscopy therefore no urgent plans for endoscopic workup at this time. 5. Will also order abdominal x-ray to ensure passage of the recent pill cam. 6. A thorough discussion was made with the patient and the family and they are agreeable to this conservative plan and can have an outpatient followup once her symptoms are improved. MD LINDSEY Jamil/RISHI /1:40 PM /6:03 PM LETTY
[2016-11-17] MEDS: ATORVASTATIN 20 MG TAB PO SCH (22:23)
[2016-11-17] MEDS: HEPARIN SODIUM - SQ 10,000 UNITS/ML VIAL SQ SCH (22:24)
[2016-11-18] VITALS (25 sets, daily range): BP systolic 107–128; BP diastolic 49–67; PULSE 72–90; RESP 16–18; TEMP 97.4–98.2; O2SAT 92–100
[2016-11-18] MEDS: NITROGLYCERIN 2% OINT 1 GM PACKET TOPICAL SCH (06:00)
[2016-11-18] MEDS: LEVOTHYROXINE SODIUM 100 MCG TAB PO SCH (07:00)
[2016-11-18] MEDS: ONDANSETRON ODT 4 MG TAB PO SCH ×3 (07:00→21:43)
[2016-11-18] MEDS: SUCRALFATE 1 GM/10 ML CUP PO SCH ×3 (07:00→21:42)
[2016-11-18] MEDS: INSULIN ASPART SUPPLEMENTAL SCALE SQ SCH ×4 (07:00→21:00)
--- NOTE | 2016-11-18 08:16 | PD.CARD.PN ---
Subjective Subjective Remarks Still c/o odynophagia. No exertional CP or SOB. Objective Medications Current Medications Medications (Trade) Dose Ordered Sig/Vivek Route PRN Reason Start Time Stop Time Status Last Admin Dose Admin IV Flush (NS Flush) 2 ml UNSCH PRN FLUSH FLUSH AFTER USING IV ACCESS 11/16/16 13:15 IV Flush (NS Flush) 2 ml BID FLUSH 11/16/16 21:00 11/17/16 22:24 Naloxone HCl (Narcan Inj) 0.4 mg UNSCH PRN IV SEE LABEL COMMENTS 11/16/16 13:15 Nitroglycerin (Nitroglycerin 2% Oint) 1 inch Q8HR TOPICAL 11/16/16 14:00 11/18/16 06:00 Acetaminophen (Tylenol) 650 mg Q4H PRN PO PAIN SCALE 1 TO 4 11/16/16 13:15 Dextrose (D50w (Vial) Inj) 25 ml UNSCH PRN IV PUSH HYPOGLYCEMIA-SEE COMMENTS 11/16/16 13:15 Glucagon (Glucagon Inj) 1 mg UNSCH PRN OTHER HYPOGLYCEMIA-SEE COMMENTS 11/16/16 13:15 Aspirin (Ecotrin Ec) 81 mg DAILY PO 11/17/16 09:00 11/17/16 09:22 Atorvastatin Calcium (Lipitor) 20 mg HS PO 11/16/16 21:00 11/17/16 22:23 Bupropion HCl (Wellbutrin Sr) 150 mg DAILY PO 11/17/16 09:00 11/17/16 09:22 Carvedilol (Coreg) 6.25 mg BID PO 11/16/16 21:00 11/17/16 22:24 Clopidogrel Bisulfate (Plavix) 75 mg DAILY PO 11/17/16 09:00 11/17/16 09:22 Ferrous Sulfate (Ferrous Sulfate) 325 mg DAILY PO 11/17/16 09:00 11/17/16 09:22 Levothyroxine Sodium (Synthroid) 100 mcg DAILY@07 PO 11/17/16 07:00 11/17/16 07:15 Magnesium Oxide (Mag-Ox) 400 mg DAILY PO 11/17/16 09:00 11/17/16 09:22 Megestrol Acetate (Megace Liq) 400 mg BID PO 11/16/16 21:00 11/17/16 22:24 Sertraline HCl (Zoloft) 100 mg DAILY PO 11/17/16 09:00 11/17/16 09:22 Metformin HCl (Glucophage) 1,000 mg BID PO 11/16/16 21:00 11/17/16 22:22 Pantoprazole Sodium (Protonix) 40 mg DAILY PO 11/17/16 09:00 11/17/16 09:22 Sitagliptin Phosphate (Januvia) 50 mg BID PO 11/16/16 21:00 11/17/16 22:23 Ranolazine (Ranexa) 500 mg Q12HR PO 11/16/16 16:00 11/17/16 22:22 Sucralfate (Carafate Liq) 1 gm ACHS PO 11/16/16 21:00 11/17/16 22:23 Al Hydrox/Mg Hydrox/Simethicone (Mag-Al Plus Susp Liq) 30 ml Q2H PRN PO INDIGESTION 11/16/16 19:15 11/16/16 19:15 Nystatin (Mycostatin Liq) 5 ml QID SWISH-SWAL 11/17/16 18:00 11/17/16 22:23 Ondansetron HCl (Zofran Odt) 4 mg ACHS PO 11/17/16 16:00 11/17/16 22:22 Heparin Sodium (Porcine) (Heparin Inj) 5,000 units BID SQ 11/17/16 21:00 11/17/16 22:24 Vital Signs / I&O Vital Signs Date Time Temp Pulse Resp B/P Pulse Ox O2 Delivery O2 Flow Rate FiO2 11/18/16 06:00 88 11/18/16 05:00 80 11/18/16 04:22 98.1 79 16 117/49 92 11/18/16 04:00 80 11/18/16 03:00 80 11/18/16 02:00 87 11/18/16 01:00 83 11/18/16 00:53 98.0 90 16 126/56 97 11/18/16 00:00 87 11/17/16 23:00 84 11/17/16 22:00 85 11/17/16 21:00 89 11/17/16 20:14 97.7 99 16 111/72 97 11/17/16 18:00 81 11/17/16 17:00 88 11/17/16 16:00 83 11/17/16 16:00 97.8 84 16 121/62 98 11/17/16 15:00 18 89/60 99 11/17/16 15:00 85 11/17/16 14:00 96 11/17/16 13:00 93 11/17/16 12:00 83 11/17/16 12:00 97.9 84 16 104/68 98 11/17/16 11:00 79 11/17/16 10:00 87 11/17/16 09:00 95 I/O 11/17/16 11/17/16 11/17/16 11/18/16 11/18/16 11/18/16 07:00 15:00 23:00 07:00 15:00 23:00 Intake Total 525 ml 360 ml 240 ml Output Total 300 ml Balance 225 ml 360 ml 240 ml Intake Oral 480 ml 360 ml 240 ml IV Total 45 ml 0 ml Output Urine Total 300 ml # Voids 1 1 # Bowel Movements 0 0 1 Physical Exam VSS, afebrile No JVD Lungs: CTA Heart RRR, no murmur Ext: No C/C/E Neuro: Non-focal Laboratory Laboratory Tests Test 11/17/16 10:13 Activated Partial 38.4 SEC Thromboplast Time Imaging Last 48 hours Impressions Abdomen X-Ray 11/17/16 0000 Signed Impressions: Service Date/Time: Thursday, November 17, 2016 13:56 - CONCLUSION: Normal examination. Nirav Yanes MD Chest X-Ray 11/16/16 1134 Signed Impressions: Service Date/Time: Wednesday, November 16, 2016 12:19 - CONCLUSION: Stable chest with no acute disease Nilton Chu MD Assessment and Plan Problem List: (1) Odynophagia (2) ASHD (arteriosclerotic heart disease) (3) Hypertension (4) Diabetes mellitus (5) Chest pain, atypical Assessment and Plan CV stable. Increase activity as tolerates. Continue GI w/u. OK to D/C telemetry. Discussed Condition With Patient Problem Qualifiers (1) Diabetes mellitus: Qualified Code: E11.9 - Type 2 diabetes mellitus without complication, without long-term current use of insulin Mansoor Bagley MD Nov 18, 2016 08:15
--- NOTE | 2016-11-18 08:25 | HHI.PR ---
Subjective Remarks OOB in chair. Ambulated with PT yesterday without any chest pain, SOB or neck pain. Denies Neck/throat pain this am but has not yet eaten. Reviewed GI consult. Patient receiving Nystatin. No evidence of coronary ischemia. Heparin drip Discontinued. Current Medications Medications (Trade) Dose Ordered Sig/Vivek Route Start Time Stop Time Status Last Admin (NS Flush) 2 ml UNSCH PRN FLUSH 11/16/16 13:15 (NS Flush) 2 ml BID FLUSH 11/16/16 21:00 11/17/16 22:24 (Narcan Inj) 0.4 mg UNSCH PRN IV 11/16/16 13:15 (Nitroglycerin 2% Oint) 1 inch Q8HR TOPICAL 11/16/16 14:00 11/18/16 06:00 (Tylenol) 650 mg Q4H PRN PO 11/16/16 13:15 (D50w (Vial) Inj) 25 ml UNSCH PRN IV PUSH 11/16/16 13:15 (Glucagon Inj) 1 mg UNSCH PRN OTHER 11/16/16 13:15 (Ecotrin Ec) 81 mg DAILY PO 11/17/16 09:00 11/17/16 09:22 (Lipitor) 20 mg HS PO 11/16/16 21:00 11/17/16 22:23 (Wellbutrin Sr) 150 mg DAILY PO 11/17/16 09:00 11/17/16 09:22 (Coreg) 6.25 mg BID PO 11/16/16 21:00 11/17/16 22:24 (Plavix) 75 mg DAILY PO 11/17/16 09:00 11/17/16 09:22 (Ferrous Sulfate) 325 mg DAILY PO 11/17/16 09:00 11/17/16 09:22 (Synthroid) 100 mcg DAILY@07 PO 11/17/16 07:00 11/17/16 07:15 (Mag-Ox) 400 mg DAILY PO 11/17/16 09:00 11/17/16 09:22 (Megace Liq) 400 mg BID PO 11/16/16 21:00 11/17/16 22:24 (Zoloft) 100 mg DAILY PO 11/17/16 09:00 11/17/16 09:22 (Glucophage) 1,000 mg BID PO 11/16/16 21:00 11/17/16 22:22 (Protonix) 40 mg DAILY PO 11/17/16 09:00 11/17/16 09:22 (Januvia) 50 mg BID PO 11/16/16 21:00 11/17/16 22:23 (Ranexa) 500 mg Q12HR PO 11/16/16 16:00 11/17/16 22:22 (Carafate Liq) 1 gm ACHS PO 11/16/16 21:00 11/17/16 22:23 (Mag-Al Plus Susp Liq) 30 ml Q2H PRN PO 11/16/16 19:15 11/16/16 19:15 (Mycostatin Liq) 5 ml QID SWISH-SWAL 11/17/16 18:00 11/17/16 22:23 (Zofran Odt) 4 mg ACHS PO 11/17/16 16:00 11/17/16 22:22 (Heparin Inj) 5,000 units BID SQ 11/17/16 21:00 11/17/16 22:24 Objective Vital Signs Date Time Temp Pulse Resp B/P Pulse Ox O2 Delivery O2 Flow Rate FiO2 11/18/16 08:00 97.4 86 18 114/64 97 11/18/16 08:00 86 11/18/16 06:00 88 11/18/16 05:00 80 11/18/16 04:22 98.1 79 16 117/49 92 11/18/16 04:00 80 11/18/16 03:00 80 11/18/16 02:00 87 11/18/16 01:00 83 11/18/16 00:53 98.0 90 16 126/56 97 11/18/16 00:00 87 11/17/16 23:00 84 11/17/16 22:00 85 11/17/16 21:00 89 11/17/16 20:14 97.7 99 16 111/72 97 11/17/16 18:00 81 11/17/16 17:00 88 11/17/16 16:00 83 11/17/16 16:00 97.8 84 16 121/62 98 11/17/16 15:00 18 89/60 99 11/17/16 15:00 85 11/17/16 14:00 96 11/17/16 13:00 93 11/17/16 12:00 83 11/17/16 12:00 97.9 84 16 104/68 98 11/17/16 11:00 79 11/17/16 10:00 87 11/17/16 09:00 95 I/O 11/17/16 11/17/16 11/17/16 11/18/16 11/18/16 11/18/16 07:00 15:00 23:00 07:00 15:00 23:00 Intake Total 525 ml 360 ml 240 ml Output Total 300 ml Balance 225 ml 360 ml 240 ml Intake Oral 480 ml 360 ml 240 ml IV Total 45 ml 0 ml Output Urine Total 300 ml # Voids 1 1 # Bowel Movements 0 0 1 Gen: OOB in chair in NAD CV: RRR Lungs: CTA Neck: supple. no LA, JVD bruits, tenderness Ext: No edema Result Diagram: 11/16/16 1155 11/17/16 0355 Other Results Laboratory Tests Test 11/17/16 10:13 Activated Partial 38.4 SEC Thromboplast Time Assessment and Plan Problem List: (1) Chest pain Status: Resolved Plan: No further chest/neck pain. Coronary ischemia ruled out. Will change back to oral nitrate. Increase activity. Will discuss with Dr. Bagley about continuing Ranexa (2) Odynophagia Status: Acute Plan: Appreciate GI consult. Patient is improved this am. Will cont Nystatin and Carafate. Zofran ordered qac. Follow po intake (3) Iron deficiency anemia Status: Chronic Plan: Cont ferrous sulfate H&H stable (4) Hypothyroidism Status: Chronic Plan: Therapeutic replacement of thyroid (5) Diabetes mellitus Status: Chronic Plan: Adequate control with current Rx (6) Dementia Status: Chronic Plan: Stable (7) Anxiety, generalized Status: Chronic Plan: Continue current medications. Controlled (8) Hypomagnesemia Status: Resolved Plan: Will follow Magnesium level (9) Hyperlipidemia Status: Chronic Plan: Cont Statin therapy (10) Kidney disease, chronic, stage III (GFR 30-59 ml/min) Status: Chronic Plan: Stable renal function Problem Qualifiers (1) Chest pain: Qualified Code: R07.9 - Chest pain, unspecified type (2) Iron deficiency anemia: Qualified Code: D50.9 - Iron deficiency anemia, unspecified iron deficiency anemia type (3) Hypothyroidism: Qualified Code: E03.9 - Hypothyroidism, unspecified type (4) Diabetes mellitus: Qualified Code: E11.9 - Type 2 diabetes mellitus without complication, without long-term current use of insulin (5) Dementia: Qualified Code: G30.1 - Late onset Alzheimer's disease without behavioral disturbance (6) Hyperlipidemia: Qualified Code: E78.2 - Mixed hyperlipidemia Joseph Livingston MD Nov 18, 2016 08:25
[2016-11-18] MEDS: SODIUM CHLORIDE 0.9% FLUSH 5 ML FLUSH FLUSH SCH ×2 (09:00→21:42)
[2016-11-18] MEDS: MEGESTROL ACETATE SUSP 400 MG/10 ML CUP PO SCH ×2 (09:13→21:41)
[2016-11-18] MEDS: NYSTATIN SUSP 500,000 U/5 ML CUP SWISH-SWAL SCH ×3 (09:13→21:41)
[2016-11-18] MEDS: buPROPion HCL 150 MG SUSTAINED RELEASE TAB PO SCH (09:13)
[2016-11-18] MEDS: metFORMIN HCL 500 MG TAB PO SCH ×2 (09:14→21:42)
[2016-11-18] MEDS: CLOPIDOGREL 75 MG TAB PO SCH (09:14)
[2016-11-18] MEDS: SERTRALINE HCL 100 MG TAB PO SCH (09:14)
[2016-11-18] MEDS: MAGNESIUM OXIDE 400 MG TAB PO SCH (09:14)
[2016-11-18] MEDS: FERROUS SULFATE 325 MG (65 MG ELEMENTAL IRON) TAB PO SCH (09:14)
[2016-11-18] MEDS: RANOLAZINE 500 MG EXTENDED RELEASE TAB PO SCH ×2 (09:14→21:41)
[2016-11-18] MEDS: PANTOPRAZOLE SOD 40 MG DELAYED RELEASE TAB PO SCH (09:14)
[2016-11-18] MEDS: CARVEDILOL 6.25 MG TAB PO SCH ×2 (09:15→21:42)
[2016-11-18] MEDS: HEPARIN SODIUM - SQ 10,000 UNITS/ML VIAL SQ SCH ×2 (09:15→21:41)
[2016-11-18] MEDS: ASPIRIN EC 81 MG TABEC PO SCH (09:15)
[2016-11-18] MEDS: ATORVASTATIN 20 MG TAB PO SCH (21:42)
[2016-11-19] VITALS (18 sets, daily range): BP systolic 103–123; BP diastolic 56–78; PULSE 72–98; RESP 18; TEMP 97.5–98.4; O2SAT 97–99
[2016-11-19] MEDS: SUCRALFATE 1 GM/10 ML CUP PO SCH ×3 (05:41→16:00)
[2016-11-19] MEDS: ONDANSETRON ODT 4 MG TAB PO SCH ×3 (05:42→16:00)
[2016-11-19] MEDS: LEVOTHYROXINE SODIUM 100 MCG TAB PO SCH (05:42)
[2016-11-19] MEDS: INSULIN ASPART SUPPLEMENTAL SCALE SQ SCH ×3 (06:09→15:56)
[2016-11-19 06:32] LABS: HEMATOCRIT 30.6 % (35.0-46.0); MEAN CELL VOLUME 92.8 FL (80.0-100.0); MEAN CORPUSCULAR HEMOGLOBIN 31.7 PG (27.0-34.0); MEAN CORPUSCULAR HGB CONC 34.1 % (32.0-36.0); PLATELET COUNT 203 TH/MM3 (150-450); RED BLOOD COUNT 3.29 MIL/MM3 (4.00-5.30); RED CELL DISTRIBUTION WIDTH 15.5 % (11.6-17.2); REVIEW FLAG FINAL; WHITE BLOOD COUNT 4.5 TH/MM3 (4.0-11.0)
--- NOTE | 2016-11-19 08:05 | PD.CARD.PN ---
Subjective Subjective Remarks Swallowing lesss painfull today. Denies CO or SOB. Objective Medications Current Medications Medications (Trade) Dose Ordered Sig/Vivek Route PRN Reason Start Time Stop Time Status Last Admin Dose Admin IV Flush (NS Flush) 2 ml UNSCH PRN FLUSH FLUSH AFTER USING IV ACCESS 11/16/16 13:15 IV Flush (NS Flush) 2 ml BID FLUSH 11/16/16 21:00 11/18/16 21:42 Naloxone HCl (Narcan Inj) 0.4 mg UNSCH PRN IV SEE LABEL COMMENTS 11/16/16 13:15 Acetaminophen (Tylenol) 650 mg Q4H PRN PO PAIN SCALE 1 TO 4 11/16/16 13:15 Dextrose (D50w (Vial) Inj) 25 ml UNSCH PRN IV PUSH HYPOGLYCEMIA-SEE COMMENTS 11/16/16 13:15 Glucagon (Glucagon Inj) 1 mg UNSCH PRN OTHER HYPOGLYCEMIA-SEE COMMENTS 11/16/16 13:15 Aspirin (Ecotrin Ec) 81 mg DAILY PO 11/17/16 09:00 11/18/16 09:15 Atorvastatin Calcium (Lipitor) 20 mg HS PO 11/16/16 21:00 11/18/16 21:42 Bupropion HCl (Wellbutrin Sr) 150 mg DAILY PO 11/17/16 09:00 11/18/16 09:13 Carvedilol (Coreg) 6.25 mg BID PO 11/16/16 21:00 11/18/16 21:42 Clopidogrel Bisulfate (Plavix) 75 mg DAILY PO 11/17/16 09:00 11/18/16 09:14 Ferrous Sulfate (Ferrous Sulfate) 325 mg DAILY PO 11/17/16 09:00 11/18/16 09:14 Levothyroxine Sodium (Synthroid) 100 mcg DAILY@07 PO 11/17/16 07:00 11/19/16 05:42 Magnesium Oxide (Mag-Ox) 400 mg DAILY PO 11/17/16 09:00 11/18/16 09:14 Megestrol Acetate (Megace Liq) 400 mg BID PO 11/16/16 21:00 11/18/16 21:41 Sertraline HCl (Zoloft) 100 mg DAILY PO 11/17/16 09:00 11/18/16 09:14 Metformin HCl (Glucophage) 1,000 mg BID PO 11/16/16 21:00 11/18/16 21:42 Pantoprazole Sodium (Protonix) 40 mg DAILY PO 11/17/16 09:00 11/18/16 09:14 Sitagliptin Phosphate (Januvia) 50 mg BID PO 11/16/16 21:00 11/18/16 21:42 Ranolazine (Ranexa) 500 mg Q12HR PO 11/16/16 16:00 11/18/16 21:41 Sucralfate (Carafate Liq) 1 gm ACHS PO 11/16/16 21:00 11/19/16 05:41 Al Hydrox/Mg Hydrox/Simethicone (Mag-Al Plus Susp Liq) 30 ml Q2H PRN PO INDIGESTION 11/16/16 19:15 11/16/16 19:15 Nystatin (Mycostatin Liq) 5 ml QID SWISH-SWAL 11/17/16 18:00 11/18/16 21:41 Ondansetron HCl (Zofran Odt) 4 mg ACHS PO 11/17/16 16:00 11/19/16 05:42 Heparin Sodium (Porcine) (Heparin Inj) 5,000 units BID SQ 11/17/16 21:00 11/18/16 21:41 Isosorbide Dinitrate (Isordil) 5 mg TIDAC PO 11/18/16 12:00 Vital Signs / I&O Vital Signs Date Time Temp Pulse Resp B/P Pulse Ox O2 Delivery O2 Flow Rate FiO2 11/19/16 07:00 98.4 88 18 123/78 98 11/19/16 07:00 85 11/19/16 06:02 81 11/19/16 05:09 83 11/19/16 04:31 98.2 72 18 121/67 97 11/19/16 04:00 72 11/19/16 03:00 72 11/19/16 02:09 74 11/19/16 01:03 79 11/19/16 00:00 98.2 80 18 107/56 97 11/19/16 00:00 79 11/18/16 23:00 85 11/18/16 22:00 84 11/18/16 21:00 82 11/18/16 20:00 98.2 88 18 128/67 97 11/18/16 20:00 81 11/18/16 19:00 88 11/18/16 18:00 77 11/18/16 17:00 72 11/18/16 16:00 98.0 75 18 110/61 98 11/18/16 16:00 75 11/18/16 15:00 79 11/18/16 14:00 88 11/18/16 13:00 87 11/18/16 12:00 97.6 75 18 107/59 100 11/18/16 12:00 73 11/18/16 11:00 86 11/18/16 10:00 82 11/18/16 09:00 86 I/O 11/18/16 11/18/16 11/18/16 11/19/16 11/19/16 11/19/16 07:00 15:00 23:00 07:00 15:00 23:00 Intake Total 240 ml 480 ml 240 ml Balance 240 ml 480 ml 240 ml Intake Oral 240 ml 480 ml 240 ml # Voids 1 5 1 # Bowel Movements 1 1 Physical Exam VSS, afebrile No JVD Lungs: CTA Heart RRR, no murmur Ext: No C/C/E Neuro: Non-focal Laboratory Laboratory Tests Test 11/19/16 06:16 White Blood Count 4.5 TH/MM3 Red Blood Count 3.29 MIL/MM3 Hemoglobin 10.4 GM/DL Hematocrit 30.6 % Mean Corpuscular Volume 92.8 FL Mean Corpuscular Hemoglobin 31.7 PG Mean Corpuscular Hemoglobin 34.1 % Concent Red Cell Distribution Width 15.5 % Platelet Count 203 TH/MM3 Mean Platelet Volume 8.2 FL Assessment and Plan Problem List: (1) Odynophagia (2) ASHD (arteriosclerotic heart disease) (3) Hypertension (4) Diabetes mellitus (5) Chest pain, atypical Assessment and Plan CV stable. Increase activity as tolerates. Continue GI w/u. OK to D/C telemetry and NTP. D/C Ranexa. Resume all other home cardiac meds. No further inpatient cardiac workup needed at this time. I will sign off and arrange outpatient follow up in 2 weeks. Thank you. Discussed Condition With Dr. Livingston. Problem Qualifiers (1) Diabetes mellitus: Qualified Code: E11.9 - Type 2 diabetes mellitus without complication, without long-term current use of insulin Mansoor Bagley MD Nov 19, 2016 08:05
[2016-11-19] MEDS: NYSTATIN SUSP 500,000 U/5 ML CUP SWISH-SWAL SCH ×2 (08:27→12:45)
[2016-11-19] MEDS: MEGESTROL ACETATE SUSP 400 MG/10 ML CUP PO SCH (08:27)
[2016-11-19] MEDS: metFORMIN HCL 500 MG TAB PO SCH (08:27)
[2016-11-19] MEDS: PANTOPRAZOLE SOD 40 MG DELAYED RELEASE TAB PO SCH (08:27)
[2016-11-19] MEDS: SODIUM CHLORIDE 0.9% FLUSH 5 ML FLUSH FLUSH SCH (08:27)
[2016-11-19] MEDS: ISOSORBIDE DINITRATE 5 MG TAB PO SCH ×2 (08:28→12:45)
[2016-11-19] MEDS: CLOPIDOGREL 75 MG TAB PO SCH (08:28)
[2016-11-19] MEDS: FERROUS SULFATE 325 MG (65 MG ELEMENTAL IRON) TAB PO SCH (08:28)
[2016-11-19] MEDS: ASPIRIN EC 81 MG TABEC PO SCH (08:28)
[2016-11-19] MEDS: buPROPion HCL 150 MG SUSTAINED RELEASE TAB PO SCH (08:28)
[2016-11-19] MEDS: CARVEDILOL 6.25 MG TAB PO SCH (08:28)
[2016-11-19] MEDS: RANOLAZINE 500 MG EXTENDED RELEASE TAB PO SCH (08:28)
[2016-11-19] MEDS: MAGNESIUM OXIDE 400 MG TAB PO SCH (08:28)
[2016-11-19] MEDS: SERTRALINE HCL 100 MG TAB PO SCH (08:29)
[2016-11-19] MEDS: HEPARIN SODIUM - SQ 10,000 UNITS/ML VIAL SQ SCH (08:29)
--- NOTE | 2016-11-19 09:08 | HHI.PR ---
Subjective Remarks Doing well. Only intermittent mild odynophagia. Taking po well. Blood sugars under adequate control. Ambulated with PT yesterday without SOB or chest pain. Current Medications Medications (Trade) Dose Ordered Sig/Vivek Route Start Time Stop Time Status Last Admin (NS Flush) 2 ml UNSCH PRN FLUSH 11/16/16 13:15 (NS Flush) 2 ml BID FLUSH 11/16/16 21:00 11/19/16 08:27 (Narcan Inj) 0.4 mg UNSCH PRN IV 11/16/16 13:15 (Tylenol) 650 mg Q4H PRN PO 11/16/16 13:15 (D50w (Vial) Inj) 25 ml UNSCH PRN IV PUSH 11/16/16 13:15 (Glucagon Inj) 1 mg UNSCH PRN OTHER 11/16/16 13:15 (Ecotrin Ec) 81 mg DAILY PO 11/17/16 09:00 11/19/16 08:28 (Lipitor) 20 mg HS PO 11/16/16 21:00 11/18/16 21:42 (Wellbutrin Sr) 150 mg DAILY PO 11/17/16 09:00 11/19/16 08:28 (Coreg) 6.25 mg BID PO 11/16/16 21:00 11/19/16 08:28 (Plavix) 75 mg DAILY PO 11/17/16 09:00 11/19/16 08:28 (Ferrous Sulfate) 325 mg DAILY PO 11/17/16 09:00 11/19/16 08:28 (Synthroid) 100 mcg DAILY@07 PO 11/17/16 07:00 11/19/16 05:42 (Mag-Ox) 400 mg DAILY PO 11/17/16 09:00 11/19/16 08:28 (Megace Liq) 400 mg BID PO 11/16/16 21:00 11/19/16 08:27 (Zoloft) 100 mg DAILY PO 11/17/16 09:00 11/19/16 08:29 (Glucophage) 1,000 mg BID PO 11/16/16 21:00 11/19/16 08:27 (Protonix) 40 mg DAILY PO 11/17/16 09:00 11/19/16 08:27 (Januvia) 50 mg BID PO 11/16/16 21:00 11/19/16 08:27 (Ranexa) 500 mg Q12HR PO 11/16/16 16:00 11/19/16 08:28 (Carafate Liq) 1 gm ACHS PO 11/16/16 21:00 11/19/16 05:41 (Mag-Al Plus Susp Liq) 30 ml Q2H PRN PO 11/16/16 19:15 11/16/16 19:15 (Mycostatin Liq) 5 ml QID SWISH-SWAL 11/17/16 18:00 11/19/16 08:27 (Zofran Odt) 4 mg ACHS PO 11/17/16 16:00 11/19/16 05:42 (Heparin Inj) 5,000 units BID SQ 11/17/16 21:00 11/19/16 08:29 (Isordil) 5 mg TIDAC PO 11/18/16 12:00 11/19/16 08:28 Objective Vital Signs Date Time Temp Pulse Resp B/P Pulse Ox O2 Delivery O2 Flow Rate FiO2 11/19/16 08:00 78 11/19/16 07:00 98.4 88 18 123/78 98 11/19/16 07:00 85 11/19/16 06:02 81 11/19/16 05:09 83 11/19/16 04:31 98.2 72 18 121/67 97 11/19/16 04:00 72 11/19/16 03:00 72 11/19/16 02:09 74 11/19/16 01:03 79 11/19/16 00:00 98.2 80 18 107/56 97 11/19/16 00:00 79 11/18/16 23:00 85 11/18/16 22:00 84 11/18/16 21:00 82 11/18/16 20:00 98.2 88 18 128/67 97 11/18/16 20:00 81 11/18/16 19:00 88 11/18/16 18:00 77 11/18/16 17:00 72 11/18/16 16:00 98.0 75 18 110/61 98 11/18/16 16:00 75 11/18/16 15:00 79 11/18/16 14:00 88 11/18/16 13:00 87 11/18/16 12:00 97.6 75 18 107/59 100 11/18/16 12:00 73 11/18/16 11:00 86 11/18/16 10:00 82 I/O 11/18/16 11/18/16 11/18/16 11/19/16 11/19/16 11/19/16 07:00 15:00 23:00 07:00 15:00 23:00 Intake Total 240 ml 480 ml 240 ml Balance 240 ml 480 ml 240 ml Intake Oral 240 ml 480 ml 240 ml # Voids 1 5 1 # Bowel Movements 1 1 Gen: NAD in bed CV: RRR Lungs: CTA Abd; soft, NT, ND, +BS Ext: No edema, calf tenderness or Homans sign. 2+ pulses Result Diagram: 11/19/16 0616 11/17/16 0355 Assessment and Plan Problem List: (1) Odynophagia Status: Acute Plan: Improving with Carafate and Nystatin. (2) ASHD (arteriosclerotic heart disease) Status: Chronic Plan: Currently asymptomatic. Admitting complaint was likely GI related. Cont current medical management (3) Iron deficiency anemia Status: Chronic Plan: Cont ferrous sulfate H&H stable (4) Hypothyroidism Status: Chronic Plan: Therapeutic replacement of thyroid (5) Diabetes mellitus Status: Chronic Plan: Adequate control with current Rx (6) Dementia Status: Chronic Plan: Stable (7) Anxiety, generalized Status: Chronic Plan: Continue current medications. Controlled (8) Hypomagnesemia Status: Resolved Plan: Will follow Magnesium level (9) Hyperlipidemia Status: Chronic Plan: Cont Statin therapy (10) Kidney disease, chronic, stage III (GFR 30-59 ml/min) Status: Chronic Plan: Stable renal function Discharge Planning Home today Problem Qualifiers (1) Iron deficiency anemia: Qualified Code: D50.9 - Iron deficiency anemia, unspecified iron deficiency anemia type (2) Hypothyroidism: Qualified Code: E03.9 - Hypothyroidism, unspecified type (3) Diabetes mellitus: Qualified Code: E11.9 - Type 2 diabetes mellitus without complication, without long-term current use of insulin (4) Dementia: Qualified Code: G30.1 - Late onset Alzheimer's disease without behavioral disturbance (5) Hyperlipidemia: Qualified Code: E78.2 - Mixed hyperlipidemia Joseph Livingston MD Nov 19, 2016 09:08
[2016-11-19] MEDS ORDERED: NYST1000 SWISH-SWAL (09:21)
[2016-11-19] MEDS ORDERED: SUCR1S PO (09:21)
--- NOTE | 2016-11-20 08:35 | MB ---
cc: LEONARDO BAGLEY M.D., HUMAYUN A. M.D. MERCER, JASON DATE OF CONSULTATION 11/16/2016 REASON FOR CONSULTATION Cardiology consultation Thank you, Dr. Livingston for asking us to see this very pleasant 86-year-old white female who is a patient of Dr. Bagley. She is known to have significant coronary artery disease. She underwent a heart catheterization in April of 2016 and at that time was noted to have significant coronary artery disease that was evaluated by Dr. Leighann Harris of cardiothoracic surgery. She had multiple co-morbidities including mild dementia and suspected lung cancer at that time, so further bypass surgery or angioplasty was deferred. Her chest x-ray currently was unremarkable. A CT angiogram of 04/30/2016 showed no evidence of pulmonary embolism and the right upper lobe mass with small primary bronchogenic carcinoma being suspected. There was a question of whether she has a pulmonary nodule or not and was recommended a follow-up CT scan. She now presents with severe jaw pain overnight and an elevated troponin at 0.12 and a BNP of 1865. TSH is also markedly elevated at 10.8 from September which would be consistent with hypothyroidism. Thyroid medicines at 100 mc of Synthroid MEDICATIONS She is also on 1. Insulin 2. Narcan 3. Dextrose 4. Glucagon p.r.n. 5. Heparin 6. Aspirin Her EKG shows nonspecific ST-T wave changes anterolaterally, but these do appear to be fairly stable. PAST MEDICAL HISTORY AND SURGERIES Significant for: 1. Collagenous colitis 2. Diabetes 3. Hypertension 4. Hyperlipidemia 5. Anxiety 6. GE reflux 7. Peptic ulcer disease 8. Diverticulosis 9. Hemorrhoids 10. Cervical and lumbar disk disease 11. Hypertension 12. Esophageal stricture 13. Benign positional vertigo 14. C6-7 cervical fusion, MEDICATIONS Include: 1. Insulin 2. Atorvastatin 3. Levofloxacin 4. Enalapril 5. Sertraline 6. Janumet ALLERGIES INCLUDE HYDROCODONE CAUSING NAUSEA, MACROBID AND SULFA. FAMILY HISTORY Noncontributory SOCIAL HISTORY , retired. Lives with a spouse. Smoked one pack of cigarettes for 25 years. SYSTEMS REVIEW Denies seizure, headaches, vomiting, diarrhea, dysuria, or hematuria. PHYSICAL EXAM VITAL SIGNS: Pulse was 83, blood pressure 150/92. GENERAL: She is an elderly white female. She appeared to be comfortable. HEART: She had two heart sounds. No murmurs. CHEST: Clear. ABDOMEN: Soft with no evidence of hepatosplenomegaly. EXTREMITIES: Legs reveal no evidence of edema. NEUROLOGIC: Exam was grossly intact. NEUROLOGIC: Grossly intact. Mild dementia noted. PSYCHIATRIC: No suicidal ideations. LABS: See above ASSESSMENT/PLAN The patient has severe three-vessel coronary artery disease. She had been on isosorbide at home. We may consider adding Ranexa. Further workup will be as per Dr. Bagley and Dr. Livingston. Discussed in detail with Dr Livingston. Geteha Delgado MD, FRCP,[facility]/[place] /2:37 PM /8:03 AM [email or web address]
--- NOTE | 2016-12-11 20:37 | HHI.DS ---
Discharge Summary Admission Date Nov 16, 2016 at 13:01 Discharge Date: Nov 19, 2016 Admitting Diagnosis NSTEMI, unstable angina, RUBY (1) Chest pain Diagnosis: Principal (2) ASHD (arteriosclerotic heart disease) Diagnosis: Secondary (3) Hypothyroidism Diagnosis: Secondary (4) Hyperlipidemia Diagnosis: Secondary (5) Dementia Diagnosis: Secondary (6) Diabetes mellitus Diagnosis: Secondary (7) Kidney disease, chronic, stage III (GFR 30-59 ml/min) Diagnosis: Secondary (8) Hypertension Diagnosis: Secondary (9) Iron deficiency anemia Diagnosis: Secondary (10) Anxiety, generalized Diagnosis: Secondary Brief History This 86-year-old white female well-known to undersigned physician has a history of severe atherosclerotic heart disease which is being treated with aggressive medical management. She also has a history of diabetes, hypertension, hypothyroidism and moderate dementia. On the night prior to admission, the patient reported substernal chest burning which radiated up to both jaws and then up to her forehead bilaterally. The patient states that she did not sleep well through the night and in the morning she still has some of the same symptoms at that point her brought her to the emergency department for further evaluation. The patient has had similar episodes in the past which were related to her esophageal reflux and esophageal spasm. In the emergency department, the patient was ill reporting some chest discomfort but it was much improved. There was not much improvement with nitroglycerin sublingual. In the emergency department, the patient's evaluation included a CK and troponin level. The troponin was elevated at 0.12. CK level was normal. EKG was unchanged from prior evaluation. With the patient's cardiac history, it was felt that she would benefit from inpatient evaluation of this chest pain. The emergency room physician felt that the patient was experiencing a non-ST elevation myocardial infarction. Hospital Course The patient was admitted to the cardiac intensive care unit. Serial EKGs and cardiac enzymes ruled out acute coronary ischemia. The maximum troponin was 0.14. CK level was never above the normal range and EKG remained unchanged. Dr. Bagley with consult for cardiology and he did not feel the patient had acute coronary ischemia. The patient clarified her complaints during the hospitalization and reported that she was having pain with swallowing which is worse with solids and liquids and feeling of regurgitation of her food. This would bring on similar symptoms to those with which she presented to the emergency department. Dr. Mota with consult of 4 gastroenterology. His recommendation was to empirically treat with nystatin for possible candidal esophagitis. He did not feel that the patient required an esophagogastroduodenoscopy at this time. During the remainder of the hospitalization, the patient's appetite improved. She was eating better than prior to admission. The patient has a history of diabetes. Her blood sugars were monitored and covered with a sliding scale of insulin as needed. She was continued on her other medications as usual. Her renal function and electrolytes were monitored and were stable. On the day of discharge patient was ambulating within the room without chest pain or shortness of breath. She still had some lightheadedness/dizziness which was a chronic complaint. She ambulated with supervision utilizing a walker. This was her baseline at home. Although the patient improved, she still remained weak. Discussion was held with the patient and her then it was felt the patient would benefit from a course of rehabilitation in a penitentiary facility. The patient and her agreed. Disposition: The patient was transferred to a penitentiary facility for progressive rehabilitation including occupational and physical therapy evaluations. Her medications are listed on her medication reconciliation sheet and discharge instructions are listed on the form 3008. The undersigned physician would followup with the patient at the facility. The patient will followup with Dr. Bagley as scheduled and gastroenterology as scheduled. Pt Condition on Discharge: Good Discharge Disposition: Discharge Home Discharge Instructions DIET: Follow Instructions for: Diabetic Diet Activities you can perform: See Additionl Instruction Additional Activity Instructio: Ambulate with walker at all times Joseph Livingston MD Dec 11, 2016 20:37
== END 2016-11-19 16:45 | DRG 392 ==
LOC: NEPC 11:19 → NEDA 13:01 → HCIN 17:47 → HCIS 11-18 10:51 → HCIN 11-18 10:52
PROVIDERS: ADMIT Family Medicine; ATTEND Family Medicine
DX: R13.10 Dysphagia, unspecified (principal); N17.9 Acute kidney failure, unspecified; E11.22 Type 2 diabetes mellitus with diabetic chronic kidney disease; I50.9 Heart failure, unspecified; R07.89 Other chest pain; I25.10 Atherosclerotic heart disease of native coronary artery without angina pectoris; E83.42 Hypomagnesemia; E03.9 Hypothyroidism, unspecified; K21.9 Gastro-esophageal reflux disease without esophagitis; N18.3 Chronic kidney disease, stage 3 (moderate); I12.9 Hypertensive chronic kidney disease with stage 1 through stage 4 chronic kidney disease, or unspecified chronic kidney disease; H81.10 Benign paroxysmal vertigo, unspecified ear; F41.1 Generalized anxiety disorder; M15.9 Polyosteoarthritis, unspecified; K44.9 Diaphragmatic hernia without obstruction or gangrene; F32.9 Major depressive disorder, single episode, unspecified; D50.9 Iron deficiency anemia, unspecified; Z91.81 History of falling; Z87.891 Personal history of nicotine dependence; Z96.659 Presence of unspecified artificial knee joint; Z87.11 Personal history of peptic ulcer disease; G30.1 Alzheimer's disease with late onset; F02.80 Dementia in other diseases classified elsewhere, unspecified severity, without behavioral disturbance, psychotic disturbance, mood disturbance, and anxiety; E78.2 Mixed hyperlipidemia
CPT/HCPCS: 71010; 74000; 80048; 80053; 80061; 80076; 82550; 82728; 82948; 83540; 83550; 83735; 84443; 84484; 85025; 85027; 85610; 85730; 93005; 96374; J1644; J1815; J3475

== ENCOUNTER 2016-12-25 07:52 | Observation (INO) | payer MEDICARE ==
[2016-12-25] VITALS (11 sets, daily range): BP systolic 101–136; BP diastolic 56–75; PULSE 89–103; RESP 17–24; TEMP 97.4–98.4; O2SAT 93–97
[~2016-12-25 07:52] MED LIST changes: -DEXI30CA PO; +DEXI60CA PO; -ENAL10TA PO; -FURO1TAB62 PO; +LEVO100T5 PO; -LEVO75TA3 PO; +MAGN400T2 PO; +MEGE40S PO; +NYST1000 SWISH-SWAL; -POTA10TA8 PO; +SUCR1S PO
[2016-12-25] MEDS ORDERED: SODIUM CHLORIDE 0.9% FLUSH 5 ML FLUSH IVF PRN ×2 (08:15→10:30)
[2016-12-25] MEDS ORDERED: NITROGLYCERIN 2% OINT 1 GM PACKET TOPICAL ONE (08:15)
[2016-12-25] MEDS ORDERED: ASPIRIN 81 MG CHEW TAB CHEW ONE (08:15)
--- NOTE | 2016-12-25 08:15 | PD ---
HPI Chief Complaint: Respiratory Symptoms Time Seen by Provider: 08:01 Travel History International Travel<30 days: No Contact w/Intl Traveler<30days: No Traveled to known affect area: No History of Present Illness HPI This is an 86-year-old woman who presents to the emergency department after she was awoken this morning with shortness of breath. She is a history of CAD, deemed not a good surgical candidate for CABG, being medically managed. She reports she had similar shortness of breath symptoms back in November when she came in with unstable angina and it was soft related to her heart. Other medical history includes diabetes hypertension hyperlipidemia. EMS reports that nursing staff noted a room air saturation 80s. EMS reports that she was on nonrebreather when they arrived and had an oxygen saturation in the 90s, but was clammy, short of breath, heart rate sinus tach at around 180s. They placed her on oxygen and they felt like she was feeling improved. Patient states she felt much better at this time. No chest pain. Was feeling well before today. She does report that she had some swelling in her ankles yesterday which is unusual for her. Swelling was symmetric. Patient has some memory trouble moderate dementia and is unable to provide much additional history. History Past Medical History Narrative Medical CAD, history of heart catheter significant multivessel disease. GERD Diabetes Hypertension Hyperlipidemia Anxiety Hypothyroidism History of peptic ulcer disease, depression History of urethral stricture, diverticulosis, hemorrhoids, hiatal hernia, esophageal strictures Osteoarthritis Menopausal: Yes : 6 Para: 5 Social History Alcohol Use: No Tobacco Use: No (QUIT) Allergies-Medications (Allergen,Severity, Reaction): Coded Allergies: Sulfa (Verified Allergy, Intermediate, Rash, 12/25/16) Macrobid (Unverified Allergy, Unknown, 12/25/16) Hydrocodone (Unverified Adverse Reaction, Mild, nausea, 12/25/16) Reported Meds & Prescriptions Reported Meds & Active Scripts Active Reported Tylenol (Acetaminophen) 325 Mg Cap 650 Mg PO Q6H PRN Meclizine (Meclizine HCl) 12.5 Mg Tab 12.5 Mg PO TID PRN Magnesium Oxide 500 Mg Tab 500 Mg PO DAILY Megace Liq (Megestrol Acetate) 40 Mg/Ml Susp 400 Mg PO BID Dexilant (Dexlansoprazole) 60 Mg Cap 60 Mg PO DAILY Levothyroxine (Levothyroxine Sodium) 100 Mcg Tab 100 Mcg PO DAILY Janumet (Sitagliptin-Metformin) 50-1,000 Mg Tab 1 Tab PO BID Zoloft (Sertraline HCl) 100 Mg Tab 100 Mg PO DAILY @ 1400 Isosorbide Dinitrate 5 Mg Tab 5 Mg PO TID Ferrous Sulfate 325 Mg Tab 325 Mg PO DAILY @ 1400 Clopidogrel (Clopidogrel Bisulfate) 75 Mg Tab 75 Mg PO DAILY Carvedilol 6.25 Mg Tab 6.25 Mg PO BID Wellbutrin SR 12 HR (Bupropion HCl) 150 Mg Tab 150 Mg PO DAILY Review of Systems Except as stated in HPI: all other systems reviewed are Neg Physical Exam Narrative GENERAL: Generally well-appearing 86-year-old woman, no acute distress. SKIN: Warm and dry. NECK: Trachea midline. No JVD. CARDIOVASCULAR: Regular rate and rhythm. No murmur appreciated. RESPIRATORY: Trace Rales in the bases. No respiratory distress. GASTROINTESTINAL: Abdomen soft, non-tender, nondistended. Hepatic and splenic margins not palpable. MUSCULOSKELETAL: No obvious deformities. No edema. NEUROLOGICAL: Awake and alert. No obvious cranial nerve deficits. Motor grossly within normal limits. Normal speech. PSYCHIATRIC: Appropriate mood and affect; insight and judgment normal. Data Data Last Documented VS Vital Signs Date Time Temp Pulse Resp B/P Pulse Ox O2 Delivery O2 Flow Rate FiO2 12/25/16 08:20 101 17 112/69 95 12/25/16 08:05 97 12/25/16 08:04 Room Air 12/25/16 07:57 97.4 Orders Complete Blood Count With Diff (12/25/16 08:01) Comprehensive Metabolic Panel (12/25/16 08:01) B-Type Natriuretic Peptide (12/25/16 08:01) D-Dimer (12/25/16 08:01) Act Partial Throm Time (Ptt) (12/25/16 08:01) Prothrombin Time / Inr (Pt) (12/25/16 08:01) Magnesium (Mg) (12/25/16 08:01) Troponin I (12/25/16 08:01) Iv Access Insert/Monitor (12/25/16 08:01) Electrocardiogram (12/25/16 08:01) Ecg Monitoring (12/25/16 08:01) Oximetry (12/25/16 08:01) Oxygen Administration (12/25/16 08:01) Chest, Single Ap (12/25/16 08:01) Sodium Chloride 0.9% Flush (Ns Flush) (12/25/16 08:15) Nitroglycerin 2% Oint (Nitroglycerin 2% (12/25/16 08:15) Aspirin Chew (Aspirin Chew) (12/25/16 08:15) Ventilation & Perfusion Scan (12/25/16 ) Furosemide Inj (Lasix Inj) (12/25/16 10:00) Labs Laboratory Tests Test 12/25/16 08:23 White Blood Count 5.4 TH/MM3 Red Blood Count 2.88 MIL/MM3 Hemoglobin 9.5 GM/DL Hematocrit 27.8 % Mean Corpuscular Volume 96.6 FL Mean Corpuscular Hemoglobin 32.9 PG Mean Corpuscular Hemoglobin 34.0 % Concent Red Cell Distribution Width 17.9 % Platelet Count 193 TH/MM3 Mean Platelet Volume 8.0 FL Neutrophils (%) (Auto) 73.7 % Lymphocytes (%) (Auto) 20.7 % Monocytes (%) (Auto) 4.2 % Eosinophils (%) (Auto) 1.1 % Basophils (%) (Auto) 0.3 % Neutrophils # (Auto) 4.0 TH/MM3 Lymphocytes # (Auto) 1.1 TH/MM3 Monocytes # (Auto) 0.2 TH/MM3 Eosinophils # (Auto) 0.1 TH/MM3 Basophils # (Auto) 0.0 TH/MM3 CBC Comment DIFF FINAL Differential Comment Prothrombin Time 11.8 SEC Prothromb Time International 1.1 RATIO Ratio Activated Partial 21.4 SEC Thromboplast Time D-Dimer Quantitative (PE/DVT) 1.04 MG/L FEU Sodium Level 137 MEQ/L Potassium Level 4.5 MEQ/L Chloride Level 105 MEQ/L Carbon Dioxide Level 23.8 MEQ/L Anion Gap 8 MEQ/L Blood Urea Nitrogen 21 MG/DL Creatinine 1.33 MG/DL Estimat Glomerular Filtration 38 ML/MIN Rate Random Glucose 183 MG/DL Calcium Level 8.2 MG/DL Magnesium Level 1.2 MG/DL Total Bilirubin 0.2 MG/DL Aspartate Amino Transf 14 U/L (AST/SGOT) Alanine Aminotransferase 13 U/L (ALT/SGPT) Alkaline Phosphatase 34 U/L Troponin I 0.04 NG/ML B-Type Natriuretic Peptide 1665 PG/ML Total Protein 6.4 GM/DL Albumin 3.1 GM/DL [facility] Medical Decision Making Medical Screen Exam Complete: Yes Emergency Medical Condition: Yes Interpretation(s) My review of EKG: Sinus rhythm at a rate of 96, normal axis, lateral ST depressions with T-wave inversions suggestive of ischemia. Compared to previous EKG from November 17, 2016, CT depressions or less pronounced. LABS: CBC remarkable for mild anemia. Remarkable for mildly elevated BUN and creatinine. Troponin negative BNP 1665 Coags mildly elevated D-dimer 1.04 Chest x-ray: No acute disease. Differential Diagnosis ACS, PE, pulmonary edema, pneumonia, bronchitis, other Narrative Course Medical decision making INITIAL: 76 year-old woman presents to the emergency department with shortness of breath. She looks overall well. History of significant CAD, medically managed because of her other comorbidities. Recent admission for unstable angina. We'll check labs x-rays aspirin nitrates, reassess. FINAL: Patient will likely some pulmonary edema volume overload. Chest x-ray doesn't show a pulmonary edema but her BNP is elevated and I think clinically this fits best with her picture. We'll plan on admission, diuresis, we will watch her overnight. Likely discharge back to provides nursing and rehabilitation in the morning if stable. Diagnosis Primary Impression: Shortness of breath Nirav Parekh MD Dec 25, 2016 08:15
[2016-12-25] MEDS ORDERED: MECL12.574 PO (08:19)
[2016-12-25] MEDS ORDERED: MAGN500T2 PO (08:19)
[2016-12-25] MEDS ORDERED: ACET1CAP18 PO (08:19)
[2016-12-25 08:41] LABS: BASOPHIL % 0.3 % (0.0-2.0); EOSINOPHIL # 0.1 TH/MM3 (0-0.4); EOSINOPHIL % 1.1 % (0.0-4.0); HEMATOCRIT 27.8 % (35.0-46.0); HEMO FLAGS DIFF FINAL; LYMPH % 20.7 % (9.0-44.0); LYMPHOCYTE # 1.1 TH/MM3 (1.0-4.8); MEAN CELL VOLUME 96.6 FL (80.0-100.0); MEAN CORPUSCULAR HEMOGLOBIN 32.9 PG (27.0-34.0); MONO % 4.2 % (0.0-8.0); NEUT % 73.7 % (16.0-70.0); PLATELET COUNT 193 TH/MM3 (150-450); RED BLOOD COUNT 2.88 MIL/MM3 (4.00-5.30); RED CELL DISTRIBUTION WIDTH 17.9 % (11.6-17.2); WHITE BLOOD COUNT 5.4 TH/MM3 (4.0-11.0)
[2016-12-25 08:48] LABS: APTT (PATIENT) 21.4 SEC (24.3-30.1); INTERNATIONAL NORMALIZED RATIO 1.1 RATIO; PROTHROMBIN TIME - PATIENT 11.8 SEC (9.8-11.6)
[2016-12-25 08:57] LABS: ANION GAP 8 MEQ/L (5-15); AST (GOT) 14 U/L (15-37); BICARBONATE 23.8 MEQ/L (21.0-32.0); BLOOD UREA NITROGEN 21 MG/DL (7-18); CHLORIDE 105 MEQ/L (98-107); GLOMERULAR FILTRATION RATE 38 ML/MIN (>89); MAGNESIUM 1.2 MG/DL (1.5-2.5); POTASSIUM 4.5 MEQ/L (3.5-5.1); SODIUM (NA) 137 MEQ/L (136-145)
[2016-12-25 09:02] LABS: ALKALINE PHOSPHATASE 34 U/L (45-117); ALT (GPT) 13 U/L (10-53); TOTAL BILIRUBIN ADULT 0.2 MG/DL (0.2-1.0)
--- NOTE | 2016-12-25 09:09 | RADRPT ---
EXAM DATE/TIME: 12/25/2016 08:23 [facility] COMPARISON: CHEST SINGLE AP, November 16, 2016, 12:19. INDICATIONS : Shortness of breath. MEDICAL HISTORY : Hypertension. SURGICAL HISTORY : None. ENCOUNTER: Initial ACUITY: 1 day PAIN SCORE: 0/10 LOCATION: Bilateral chest FINDINGS: A single view of the chest demonstrates the lungs to be symmetrically aerated without evidence of mas s, infiltrate or effusion. The cardiomediastinal contours are unremarkable with age acceptable mild atherosclerotic changes of aorta.. Osseous structures are intact with anterior cervical fusion plate remaining in place.. CONCLUSION: No acute disease. No significant change has occurred. Yaakov Breaux MD on December 25, 2016 at 9:06 Board Certified Radiologist. This report was verified electronically.
[2016-12-25] MEDS ORDERED: FUROSEMIDE 20 MG/2 ML VIAL IV PUSH ONE (10:00)
[2016-12-25] MEDS ORDERED: ACETAMINOPHEN 325 MG TAB PO PRN (10:30)
[2016-12-25] MEDS ORDERED: MECLIZINE HCL 25 MG TAB PO PRN (10:30)
[2016-12-25] MEDS ORDERED: GLUCAGON 1 MG/ML VIAL OTHER PRN (11:00)
[2016-12-25] MEDS ORDERED: DEXTROSE 50% IN WATER 50 ML VIAL(D50) IV PUSH PRN (11:00)
--- NOTE | 2016-12-25 11:20 | RADRPT ---
EXAM DATE/TIME: 12/25/2016 10:29 [facility] COMPARISON: CHEST SINGLE AP, December 25, 2016, 8:23. INDICATIONS : Dyspnea with elevated d-dimer. DOSE: 8.5 mCi Tc99m MAA IV 0.93 mCi Tc99m DTPA aerosol MEDICAL HISTORY : Hypertension. Hypothyroidism. Diabetes mellitus type 2. Coronary artery disease. SURGICAL HISTORY : Tubal ligation. Tonsillectomy. Back surgery. ENCOUNTER: Initial ACUITY: 1 day PAIN SCALE: 0/10 LOCATION: chest TECHNIQUE: Following five minutes of tidal breathing of DTPA aerosol, planar images of the lungs were performed in eight projections. The patient was then injected with MAA, and eight-view perfusion scan was perf ormed. FINDINGS: A matched subsegmental defect is seen involving the left upper lobe. No abnormality is seen on the co rrelate radiograph. There is heterogeneous activity throughout the lung parenchyma on the ventilation study consistent with central deposition in the airways. No other photopenic defects seen within the perfusion study. CONCLUSION: Low probability for pulmonary embolus. Matty Santiago Jr., MD on December 25, 2016 at 11:14 Board Certified Radiologist. This report was verified electronically.
[2016-12-25] MEDS: INSULIN ASPART SUPPLEMENTAL SCALE SQ SCH ×3 (12:30→22:28)
[2016-12-25] MEDS ORDERED: PILL SPLITTER OTHER PRN (12:30)
[2016-12-25] MEDS: SERTRALINE HCL 100 MG TAB PO SCH (13:47)
[2016-12-25] MEDS: ISOSORBIDE DINITRATE 5 MG TAB PO SCH ×2 (13:47→17:09)
[2016-12-25] MEDS: HEPARIN SODIUM - SQ 10,000 UNITS/ML VIAL SQ SCH ×2 (13:47→23:34)
--- NOTE | 2016-12-25 14:51 | HHI.HP ---
cc: Joseph Livingston MD [facility] Joseph Livingston MD Admission Diagnosis Chest Pain Diagnoses: (1) Acute exacerbation of CHF (congestive heart failure) Diagnosis: Principal (2) Chronic systolic CHF (congestive heart failure) (3) Acute kidney injury (4) Hypertension (5) Hypothyroidism (6) Hyperlipidemia (7) Diabetes mellitus Chief Complaint: Dyspnea Travel History International Travel<30 Days: No Contact w/Intl Traveler <30 Da: No Traveled to Known Affected Are: No History of Present Illness The patient is an 86-year-old female who has a significant history of coronary artery disease. She presented to the emergency department with complaint of shortness of breath that started last night. She was admitted to the hospital in April of last year and found to have significant coronary artery disease. She was not felt to be a surgical candidate and medical management was recommended. Her claim agent is Dr. Sauer. She denies chest pain. She does report a nonproductive cough. Review of Systems Constitutional: COMPLAINS OF: Night Sweats, DENIES: Fever, Chills Eyes: DENIES: Blurred vision, Vision loss Ears, nose, mouth, throat: DENIES: Hearing loss Respiratory: COMPLAINS OF: Cough, Shortness of breath, DENIES: Wheezing, Sputum production Cardiovascular: DENIES: Chest pain, Palpitations, Dyspnea on Exertion, Lower Extremity Edema Gastrointestinal: DENIES: Abdominal pain, Constipation, Diarrhea, Nausea, Vomiting Genitourinary: DENIES: Urinary frequency, Urinary incontinence, Urgency, Hematuria, Dysuria, Nocturia Musculoskeletal: DENIES: Joint pain, Muscle aches Integumentary: DENIES: Pruritus, Rash Hematologic/lymphatic: DENIES: Bruising Neurologic: DENIES: Headache Past Family Social History Past Medical History Hypertension Hyperlipidemia Diabetes mellitus Anxiety Hypothyroidism GERD, history of peptic ulcer disease Coronary artery disease Osteoarthritis Dementia Past Surgical History Cardiac catheterization C6-C7 fusion Partial knee replacement 2003 Reported Medications Tylenol (Acetaminophen) 325 Mg Cap 650 Mg PO Q6H PRN Meclizine (Meclizine HCl) 12.5 Mg Tab 12.5 Mg PO TID PRN Magnesium Oxide 500 Mg Tab 500 Mg PO DAILY Megace Liq (Megestrol Acetate) 40 Mg/Ml Susp 400 Mg PO BID Dexilant (Dexlansoprazole) 60 Mg Cap 60 Mg PO DAILY Levothyroxine (Levothyroxine Sodium) 100 Mcg Tab 100 Mcg PO DAILY Janumet (Sitagliptin-Metformin) 50-1,000 Mg Tab 1 Tab PO BID Zoloft (Sertraline HCl) 100 Mg Tab 100 Mg PO DAILY @ 1400 Isosorbide Dinitrate 5 Mg Tab 5 Mg PO TID Ferrous Sulfate 325 Mg Tab 325 Mg PO DAILY @ 1400 Clopidogrel (Clopidogrel Bisulfate) 75 Mg Tab 75 Mg PO DAILY Carvedilol 6.25 Mg Tab 6.25 Mg PO BID Wellbutrin SR 12 HR (Bupropion HCl) 150 Mg Tab 150 Mg PO DAILY Allergies: Coded Allergies: Sulfa (Verified Allergy, Intermediate, Rash, 12/25/16) Macrobid (Unverified Allergy, Unknown, 12/25/16) Hydrocodone (Unverified Adverse Reaction, Mild, nausea, 12/25/16) Family History CVA Social History Patient quit smoking 20 years ago. Denies alcohol use. Currently resides at a rehabilitation facility. Physical Exam Vital Signs Vital Signs Date Time Temp Pulse Resp B/P Pulse Ox O2 Delivery O2 Flow Rate FiO2 12/25/16 13:05 98.4 89 17 136/75 93 12/25/16 10:25 96 21 12/25/16 08:20 101 17 112/69 95 12/25/16 08:05 97 12/25/16 08:04 97 Room Air 12/25/16 07:57 97.4 103 24 119/70 96 Physical Exam GENERAL: Elderly female in no acute distress. HEENT: Normocephalic, atraumatic. Pupils equal, round and reactive. Extraocular movements intact. No scleral icterus. No injection or drainage. Oropharynx is clear. Mucous membranes are moist. CARDIOVASCULAR: Regular rate and rhythm without murmurs, gallops, or rubs. RESPIRATORY: Mild basilar crackles. Breathing is non-labored. GASTROINTESTINAL: Abdomen soft, non-tender, nondistended. EXTREMITIES: No lower extremity edema. No calf tenderness. PSYCH: Alert and oriented x 3. Laboratory Laboratory Tests Test 12/25/16 08:23 White Blood Count 5.4 Red Blood Count 2.88 Hemoglobin 9.5 Hematocrit 27.8 Mean Corpuscular Volume 96.6 Mean Corpuscular Hemoglobin 32.9 Mean Corpuscular Hemoglobin 34.0 Concent Red Cell Distribution Width 17.9 Platelet Count 193 Mean Platelet Volume 8.0 Neutrophils (%) (Auto) 73.7 Lymphocytes (%) (Auto) 20.7 Monocytes (%) (Auto) 4.2 Eosinophils (%) (Auto) 1.1 Basophils (%) (Auto) 0.3 Neutrophils # (Auto) 4.0 Lymphocytes # (Auto) 1.1 Monocytes # (Auto) 0.2 Eosinophils # (Auto) 0.1 Basophils # (Auto) 0.0 CBC Comment DIFF FINAL Differential Comment Prothrombin Time 11.8 Prothromb Time International 1.1 Ratio Activated Partial 21.4 Thromboplast Time D-Dimer Quantitative (PE/DVT) 1.04 Sodium Level 137 Potassium Level 4.5 Chloride Level 105 Carbon Dioxide Level 23.8 Anion Gap 8 Blood Urea Nitrogen 21 Creatinine 1.33 Estimat Glomerular Filtration 38 Rate Random Glucose 183 Calcium Level 8.2 Magnesium Level 1.2 Total Bilirubin 0.2 Aspartate Amino Transf 14 (AST/SGOT) Alanine Aminotransferase 13 (ALT/SGPT) Alkaline Phosphatase 34 Troponin I 0.04 B-Type Natriuretic Peptide 1665 Total Protein 6.4 Albumin 3.1 Result Diagram: 12/25/16 0823 12/25/16 0823 Imaging Last Impressions Chest X-Ray 12/25/16 0801 Signed Impressions: Service Date/Time: Sunday, December 25, 2016 08:23 - CONCLUSION: No acute disease. No significant change has occurred. Yaakov Breaux MD Lung Scan- Nuclear Medicine 12/25/16 0000 Signed Impressions: Service Date/Time: Sunday, December 25, 2016 10:29 - CONCLUSION: Low probability for pulmonary embolus. Matty Santiago Jr., MD Assessment and Plan Assessment and Plan 1. Acute exacerbation of chronic systolic congestive heart failure: Ejection fraction in April 2016 was 25-30%. Recheck echocardiogram. Consult patient's claim agent. Continue diuresis. Currently stable on room air. 2. Hypertension: Continue Coreg. 3. Hypothyroidism: Continue Synthroid. 4. Diabetes mellitus: Monitor Accu-Cheks and cover with sliding scale insulin. Hold Janumet. 5. GERD, history of peptic ulcer disease: Continue PPI. 6. DVT prophylaxis: Subcutaneous heparin. Code Status DO NOT RESUSCITATE Anshul Magana MD Dec 25, 2016 14:51
[2016-12-25] MEDS ORDERED: FUROSEMIDE 20 MG/2 ML VIAL IV PUSH SCH (18:00)
[2016-12-25] MEDS ORDERED: SPIRONOLACTONE 25 MG TAB PO ONE (19:15)
[2016-12-25] MEDS ORDERED: POTASSIUM CHLORIDE 10 MEQ CONTROLLED RELEASE TAB PO SCH (21:00)
--- NOTE | 2016-12-25 21:00 | EC ---
Study Study Date:12/25/2016 STUDY CONCLUSIONS SUMMARY - Left ventricle: The cavity size was moderately dilated. Wall thickness was normal. Systolic function was moderately to severely reduced. The estimated ejection fraction was 30%. Wall motion was normal; there were no regional wall motion abnormalities. - Aortic valve: Trileaflet; moderately thickened, mildly calcified leaflets. - Mitral valve: Calcified annulus. Moderately thickened, mildly calcified leaflets, . Moderate to severe regurgitation. - Tricuspid valve: Mild regurgitation. If LV function is below 40, please consider prescribing an ACEI or ARB or document rationale for non-use. PROCEDURE DATA STUDY STATUS: Elective. Procedure: Transthoracic echocardiography. Image quality was good. Scanning was performed from the parasternal, apical, and subcostal acoustic windows. Study completion: The patient tolerated the procedure well. Transthoracic echocardiography. M-mode, complete 2D, complete spectral Doppler, and color Doppler. Weight: Weight: 122.7lb. Patient status: Inpatient. CARDIAC ANATOMY LEFT VENTRICLE: The cavity size was moderately dilated. Wall thickness was normal. Systolic function was moderately to severely reduced. The estimated ejection fraction was 30%. Wall motion was normal; there were no regional wall motion abnormalities. AORTIC VALVE: Trileaflet; moderately thickened, mildly calcified leaflets. Doppler: Transvalvular velocity was within the normal range. There was no stenosis. No regurgitation. Valve area: 2.26cm^2 (Vmax). AORTA: Aortic root: The aortic root was normal in size. MITRAL VALVE: Calcified annulus. Moderately thickened, mildly calcified leaflets, . Doppler: Transvalvular velocity was within the normal range. There was no evidence for stenosis. Moderate to severe regurgitation. Peak gradient: 2mm Hg (D). LEFT ATRIUM: The atrium was normal in size. RIGHT VENTRICLE: The cavity size was normal. Wall thickness was normal. PULMONIC VALVE: Doppler: Transvalvular velocity was within the normal range. There was no evidence for stenosis. No regurgitation. TRICUSPID VALVE: Structurally normal valve. Doppler: Transvalvular velocity was within the normal range. Mild regurgitation. PULMONARY ARTERY: The main pulmonary artery was normal-sized. Systolic pressure was within the normal range. RIGHT ATRIUM: The atrium was normal in size. PERICARDIUM: There was no pericardial effusion. SYSTEMIC VEINS: Inferior vena cava: The vessel was normal in size. Patient weight: 122.7lb _Ejection fraction:_ 65-75% _Fractional shortening:_ 32% up to 5Kg 5-11.5Kg 11.6-22.9Kg 23-45Kg 45-57Kg Aortic Root 7-13 <17 13-22 17-27 17-27 LA diam 6-13 <23 24-38 33-47 37-40 RVID 10-17 7-15 7-15 7-18 8-17 LVIDd 12-22 <32 24-38 33-47 37-40 LVPW 2-4 3-6 5-7 6-8 7-8 IVS 2-4 3-6 5-7 6-8 7-8 BASIC MEASUREMENTS ADULT NORMAL Left ventricle LV internal dimension, ED, chordal level, *55.9 mm 43-52 PLAX LV internal dimension, ES, chordal level, *49.6 mm 23-38 PLAX Fractional shortening, chordal level, PLAX *11 % >29 LV posterior wall thickness, ED 9.17 mm IVS/LVPW ratio, ED 0.98 <1.3 Volume, ED, MOD, 1-plane 124 ml Volume, ES, MOD, 1-plane 83 ml Ejection fraction, MOD, 1-plane 33 % Stroke volume, MOD, 1-plane 41 ml Volume, ED, MOD, 2-plane 123 ml Volume, ES, MOD, 2-plane 83 ml Ejection fraction, MOD, 2-plane 33 % Stroke volume, MOD, 2-plane 40 ml Ventricular septum Septal thickness, ED 9.02 mm Aortic valve Leaflet separation 18 mm 15-26 BASIC MEASUREMENTS ADULT NORMAL Aortic valve Leaflet separation 18 mm 15-26 Aorta Root diameter, ED 21 mm 20-37 Left atrium Anterior-posterior dimension, ES 26 mm 19-40 LA/aortic root ratio 1.24 DOPPLER MEASUREMENTS ADULT NORMAL Main pulmonary artery Pressure, S 28 mm Hg =30 Aortic valve Peak velocity, S 132 cm/s Valve area, Vmax 2.26 cm^2 Mitral valve Peak E-wave velocity 74 cm/s Peak A-wave velocity 56.3 cm/s Deceleration time *127 ms 150-230 Peak gradient, D 2 mm Hg Peak E/A ratio 1.3 Maximal regurgitant velocity 410 cm/s Tricuspid valve Regurgitant peak velocity 215 cm/s Peak RV-RA gradient, S 18 mm Hg Maximal regurgitant velocity 215 cm/s Systemic veins Estimated CVP 10 mm Hg Right ventricle RV pressure, S 28 mm Hg <30 LEGEND: Mean values are shown as u=mean value. Asterisk (*) lopez values outside specified normal range. Prepared and signed by Jason Clark [id number]
--- NOTE | 2016-12-25 21:51 | EKG ---
Date Performed: 12/25/2016 Time Performed: 08:06:41 PTAGE: 86 years EKG: Sinus rhythm WITH SINUS ARRHYTHMIA ST DEVIATION AND MODERATE T-WAVE ABNORMALITY, CONSIDER LATERAL ISCHEMIA ABNORM AL ECG PREVIOUS TRACING : 12/25/2016 08.05 Compared to prior tracing no significant change DOCTOR: Jason Clark Interpretating Date/Time 12/25/2016 21:49:39
[2016-12-25] MEDS: CARVEDILOL 6.25 MG TAB PO SCH (22:24)
[2016-12-25] MEDS: SODIUM CHLORIDE 0.9% FLUSH 5 ML FLUSH IVF SCH (22:24)
[2016-12-25] MEDS: MEGESTROL ACETATE SUSP 400 MG/10 ML CUP PO SCH (22:24)
[2016-12-25] MEDS ORDERED: RAMIPRIL 1.25 MG CAP PO SCH (23:00)
[2016-12-26 04:19] VITALS: BP 126/59; PULSE 80; RESP 18; TEMP 97; O2SAT 93
[2016-12-26] MEDS ORDERED: LEVOTHYROXINE SODIUM 100 MCG TAB PO SCH (06:00)
[2016-12-26] MEDS: INSULIN ASPART SUPPLEMENTAL SCALE SQ SCH ×3 (06:03→16:00)
[2016-12-26 06:57] LABS: AUTOMATED NEUTROPHIL # 3.1 TH/MM3 (1.8-7.7); BASOPHIL % 0.4 % (0.0-2.0); EOSINOPHIL # 0.1 TH/MM3 (0-0.4); HEMATOCRIT 28.5 % (35.0-46.0); HEMO FLAGS DIFF FINAL; LYMPH % 24.8 % (9.0-44.0); LYMPHOCYTE # 1.1 TH/MM3 (1.0-4.8); MEAN CELL VOLUME 96.3 FL (80.0-100.0); MEAN CORPUSCULAR HEMOGLOBIN 33.7 PG (27.0-34.0); MONO % 5.9 % (0.0-8.0); NEUT % 66.9 % (16.0-70.0); PLATELET COUNT 190 TH/MM3 (150-450); RED BLOOD COUNT 2.96 MIL/MM3 (4.00-5.30); RED CELL DISTRIBUTION WIDTH 18.3 % (11.6-17.2); WHITE BLOOD COUNT 4.6 TH/MM3 (4.0-11.0)
[2016-12-26 07:32] LABS: BICARBONATE 27.5 MEQ/L (21.0-32.0); POTASSIUM 4.6 MEQ/L (3.5-5.1)
[2016-12-26 08:10] VITALS: BP 122/65; PULSE 85; RESP 16; TEMP 97; O2SAT 96
[2016-12-26 08:45] VITALS: PULSE 85
[2016-12-26] MEDS ORDERED: RAMIPRIL 1.25 MG CAP PO SCH (09:00)
[2016-12-26] MEDS ORDERED: ASPIRIN EC 325 MG TABEC PO SCH (09:00)
[2016-12-26] MEDS ORDERED: CLOPIDOGREL 75 MG TAB PO SCH (09:00)
[2016-12-26] MEDS ORDERED: FERROUS SULFATE 325 MG (65 MG ELEMENTAL IRON) TAB PO SCH (09:00)
[2016-12-26] MEDS ORDERED: PANTOPRAZOLE SOD 40 MG DELAYED RELEASE TAB PO SCH (09:00)
[2016-12-26] MEDS ORDERED: SPIRONOLACTONE 25 MG TAB PO SCH (09:00)
[2016-12-26] MEDS ORDERED: buPROPion HCL 150 MG SUSTAINED RELEASE TAB PO SCH (09:00)
[2016-12-26] MEDS ORDERED: ASPIRIN EC 81 MG TABEC PO SCH (09:00)
[2016-12-26] MEDS: CARVEDILOL 6.25 MG TAB PO SCH (09:17)
[2016-12-26] MEDS: ISOSORBIDE DINITRATE 5 MG TAB PO SCH ×2 (09:17→13:07)
[2016-12-26] MEDS: SODIUM CHLORIDE 0.9% FLUSH 5 ML FLUSH IVF SCH (09:18)
[2016-12-26] MEDS: MEGESTROL ACETATE SUSP 400 MG/10 ML CUP PO SCH (09:18)
[2016-12-26 09:34] VITALS: O2SAT 96
--- NOTE | 2016-12-26 10:08 | HHI.PR ---
Subjective Remarks Follow up for shortness of breath, CHF exacerbation. The patient reports her breathing has improved today, denies any significant shortness of breath while resting in bed. She states she urinated a lot yesterday. Her ankle swelling resolved. She states she just feels tired today. Denies any headache, lightheadedness, dizziness, chest pain, palpitations, or abdominal complaints. She is currently at rehab and will be returning there upon discharge. Objective Vitals Vital Signs Date Time Temp Pulse Resp B/P Pulse Ox O2 Delivery O2 Flow Rate FiO2 12/26/16 09:34 96 21 12/26/16 08:10 97.0 85 16 122/65 96 12/26/16 04:19 97.0 80 18 126/59 93 12/25/16 23:47 97.6 96 18 121/67 96 12/25/16 20:14 97.6 99 18 101/56 95 12/25/16 20:02 90 12/25/16 19:33 95 21 12/25/16 17:52 98.1 101 19 123/61 96 12/25/16 14:00 95 12/25/16 13:05 98.4 89 17 136/75 93 12/25/16 10:25 96 21 I/O 12/25/16 12/25/16 12/25/16 12/26/16 12/26/16 12/26/16 07:00 15:00 23:00 07:00 15:00 23:00 Intake Total 240 ml Balance 240 ml Intake Oral 240 ml # Voids 2 Result Diagram: 12/26/16 0622 12/26/16 0622 Imaging Last Impressions Chest X-Ray 12/25/16 0801 Signed Impressions: Service Date/Time: Sunday, December 25, 2016 08:23 - CONCLUSION: No acute disease. No significant change has occurred. Yaakov Breaux MD Lung Scan- Nuclear Medicine 12/25/16 0000 Signed Impressions: Service Date/Time: Sunday, December 25, 2016 10:29 - CONCLUSION: Low probability for pulmonary embolus. Matty Santiago Jr., MD Objective Remarks GENERAL: Well-nourished, well-developed elderly female patient in [facility]. Pleasantly demented. SKIN: Warm and dry. No rash. HEENT: Normocephalic. Atraumatic.Pupils equal and round. No scleral icterus. No injection or drainage. Mucous membranes pink and moist. NECK: Supple. Trachea midline. CARDIOVASCULAR: Regular rate and rhythm. S1, S2 noted. No murmur appreciated. RESPIRATORY: No accessory muscle use. Slightly diminished at bilateral bases, otherwise clear to auscultation. Breath sounds equal bilaterally. GASTROINTESTINAL: Abdomen soft, non-tender, nondistended. Normoactive bowel sounds x4. MUSCULOSKELETAL: No obvious deformities. Extremities without clubbing, cyanosis , or edema. NEUROLOGICAL: Awake and alert. No obvious cranial nerve deficits. Motor grossly within normal limits. Normal speech. PSYCHIATRIC: Appropriate mood and affect; insight and judgment limited. Medications and IVs Current Medications Medications (Trade) Dose Ordered Sig/Vivek Route Start Time Stop Time Status Last Admin (NS Flush) 2 ml UNSCH PRN IVF 12/25/16 10:30 (NS Flush) 2 ml BID IVF 12/25/16 21:00 12/26/16 09:18 (Tylenol) 650 mg Q6H PRN PO 12/25/16 10:30 (Wellbutrin Sr) 150 mg DAILY PO 12/26/16 09:00 12/26/16 09:17 (Coreg) 6.25 mg BID PO 12/25/16 21:00 12/26/16 09:17 (Plavix) 75 mg DAILY PO 12/26/16 09:00 12/26/16 09:18 (Ferrous Sulfate) 325 mg DAILY PO 12/26/16 09:00 12/26/16 09:18 (Isordil) 5 mg TID PO 12/25/16 13:00 12/26/16 09:17 (Synthroid) 100 mcg DAILY@0600 PO 12/26/16 06:00 12/26/16 06:01 (Antivert) 12.5 mg TID PRN PO 12/25/16 10:30 (Megace Liq) 400 mg BID PO 12/25/16 21:00 12/26/16 09:18 (Zoloft) 100 mg DAILY@1400 PO 12/25/16 14:00 12/25/16 13:47 (Protonix) 40 mg DAILY PO 12/26/16 09:00 12/26/16 09:18 (Mag-Ox) 500 mg DAILY@12 PO 12/26/16 12:00 (D50w (Vial) Inj) 25 ml UNSCH PRN IV PUSH 12/25/16 11:00 (Glucagon Inj) 1 mg UNSCH PRN OTHER 12/25/16 11:00 (Pill Splitter) 1 ea UNSCH PRN OTHER 12/25/16 12:30 (Aldactone) 25 mg DAILY PO 12/26/16 09:00 12/26/16 09:18 (Ecotrin Ec) 81 mg DAILY PO 12/26/16 09:00 12/26/16 09:17 (Altace) 1.25 mg BID PO 12/26/16 09:00 12/26/16 09:17 (Lasix) 20 mg DAILY PO 12/27/16 09:00 A/P Problem List: (1) Acute exacerbation of CHF (congestive heart failure) ICD Code: I50.9 Status: Acute (2) Chronic systolic CHF (congestive heart failure) ICD Code: I50.22 Status: Acute (3) Acute kidney injury ICD Code: N17.9 Status: Acute (4) Hypertension ICD Code: I10 Status: Chronic (5) Hypothyroidism ICD Code: E03.9 Status: Chronic (6) Hyperlipidemia ICD Code: E78.5 Status: Chronic (7) Diabetes mellitus ICD Code: E11.9 Status: Chronic Assessment and Plan 86-year-old female with history of CAD, HTN, HLD, DM, hypothyroidism, GERD, PUD , osteoarthritis, dementia, anxiety, presents with shortness of breath from her rehabilitation facility. Acute exacerbation of chronic systolic CHF: BNP elevated at 1665. CXR unremarkable. D-dimer 1.04, VQ scan with low probability for PE. EF April 2016 was 25-30%. Repeat Echocardiogram 12/25 with EF 30%, mod-severe MR.. Consult patient's bulk sugar handler. S/p IV Lasix 20mg bid with adequate diuresis, change to Lasix 20mg po daily. Currently stable on room air. Likely discharge back to SNF today if ok with cardiology. Hypertension: Continue Coreg. Hypothyroidism: Continue Synthroid. Diabetes mellitus: Monitor Accu-Cheks and cover with sliding scale insulin. Hold Janumet. GERD, history of peptic ulcer disease: Continue PPI. Anemia: Hemoglobin is slightly lower than it was one month ago. Monitor H&H, improved today with Hgb 10.0. Stable. Acute kidney injury: Monitor BUN and creatinine. Will likely worsen with diuresis. Cr 1.49 today. Outpatient BMP in 2-3 days. DVT prophylaxis: Subcutaneous heparin. Code Status DO NOT RESUSCITATE Discussed with Dr. Farah. Discharge Planning Discharge patient to SNF Condition on discharge: Improved Heart Healthy/Diabetic Diet as tolerated Ad Myrna activity Rx written: Ramipril 1.25mg bid, [id number] daily, Aspirin 81mg daily, Spironolactone 25mg qd Follow-up with primary care physician Dr. Livingston and bulk sugar handler Dr. Blank in 1 week Attending Statement The exam, history, and the medical decision-making described in the above note were completed with the assistance of the mid-level provider. I reviewed and agree with the findings presented. I attest that I had a [id number] encounter with the patient on the same day, and personally performed and documented my assessment and findings in the medical record. Alanna Poole PA-C Dec 26, 2016 10:08 Mynor Farah MD Dec 27, 2016 08:54
--- NOTE | 2016-12-26 10:14 | MB ---
cc: LEONARDO THAYER M.D., JASON DATE OF CONSULTATION 12/26/2016 REASON FOR CONSULTATION Shortness of breath and congestive heart failure. HISTORY Ms. Mishra is an 86-year-old white female well-known to me with a history of severe coronary artery disease including a complex left main coronary bifurcation stenosis, left ventricular dysfunction, COPD, and CKD. She has been treated medically due to her multiple medical problems and has been deemed a nonsurgical candidate in the past after a cardiac catheterization a year ago. She was doing reasonably well and resides at a local [facility] in [place]. She began noticing shortness of breath at rest and lying down consistent with orthopnea two days ago. She was taken to the emergency room found to be in mild congestive heart failure and has been given intravenous Lasix with improvement. She is currently lying flat in bed in no distress and denies any shortness of breath at this time. She denies any angina or chest pain any time recently. She gets all of her medications as directed at the mcc. She is minimally active. She is very unsteady on her feet and needs assistance to get around. PAST MEDICAL HISTORY As mentioned in HPI in addition: 1. Hypercholesterolemia 2. Depression 3. Anxiety 4. OBS 5. Arthritis 6. Irritable bowel syndrome 7. Gastroesophageal reflux disease 8. Hypothyroidism 9. Diabetes mellitus type 2 ALLERGIES SULFA, MACROBID, HYDROCODONE. MEDICATIONS 1. Furosemide 20 mg IV q12h 2. Plavix 75 mg daily 3. Heparin 5000 units subcu q12h 4. Protonix 40 mg daily 5. Aspirin 325 mg daily 6. Synthroid 100 mcg daily 7. Carvedilol 6.25 mg p.o. b.i.d. 8. Zoloft 100 mg daily 9. Isordil 5 mg t.i.d. 10. Nitro-paste 1 inch chest wall q6h 11. Meclizine p.r.n. SOCIAL HISTORY The patient is currently residing in a mcc as mentioned. She does no regular exercise. She denies tobacco or alcohol use or any illicit drug use at this time. She has tobacco cigarette smoking history. She is and her is here with her. FAMILY HISTORY Noncontributory REVIEW OF SYSTEMS Has intermittent lower extremity edema she says in her feet, although that has resolved today. Denies claudication. Denies any exertional chest discomfort. Denies palpitations, lightheadedness or syncope. Denies any bleeding or clotting disorders. Except for that mentioned in the HPI, her complete 12-point review of systems is otherwise negative. PHYSICAL EXAMINATION This is an elderly, weak-appearing and frail-appearing white female lying in bed in no distress at this time. VITAL SIGNS: Blood pressure 122/65 mmHg, heart rate is 85 and regular, respiratory rate 16, temperature 97, ox saturation 96% on room air. HEAD: Normocephalic and atraumatic. EYES: Pupils equal and react to light. Sclerae anicteric. Extraocular movements intact. NECK: Supple. There is no adenopathy. There is no jugular venous distension noted at 30 degrees. Carotid upstrokes are normal. No bruits heard. Thyroid exam is normal. LUNGS: Clear with decreased breath sounds bilaterally. HEART: PMI is slightly displaced and diffuse. S1-S2 are normal. I hear no murmurs, gallops, clicks or rubs. ABDOMEN: Bowel sounds present, soft, nontender. No hepatosplenomegaly, masses or bruits. EXTREMITIES: No cyanosis, clubbing or edema. Pulses are +2 to 3 bilaterally throughout the lower extremities. There are no femoral bruits. NEUROLOGIC: Exam is not is nonfocal. A chest x-ray done yesterday on admission shows no acute disease with no interval change. A ventilation-perfusion scan was low probability for PE. An EKG shows a sinus tachycardia with LVH and probable repolarization abnormalities, anterolateral ST abnormalities consider ischemia. Abnormal EKG. LABS CBC white count 4.6, hemoglobin 10.0, hematocrit 28.5, platelet count 190,000. Coags were normal, D-dimer 1.04. Chemistries sodium 138, potassium 4.6, chloride 103, CO2 27.5, BUN 27, creatinine 1.49, glucose 136, calcium 8.6. Troponin I on admission yesterday morning at 08:23 was 0.04, second set 0.07, third set 0.06 at 2048 last night. BNP on admission 1665. Echocardiogram from yesterday shows left ventricular ejection fraction reduced at 30%. No regional wall motion abnormalities identified. The mitral annular calcification, aortic sclerosis. Moderate to severe mitral regurgitation, mild tricuspid regurgitation. Her cardiac catheterization results from last year May 02, 2016 were reviewed, left ventricular ejection fraction at that time was 40% with global hypokinesis. There is a 65% distal stenosis involving the bifurcation and origin of the LAD and circumflex artery and distal bifurcation of the left main involving the origin of the LAD and circumflex arteries with concomitant severe three-vessel disease. Those results were reviewed with Dr. Leighann Harris of cardiothoracic surgery and Dr. Livingston and we all made a decision involving the family for continued conservative medical management since she was a poor candidate for surgery or percutaneous intervention. IMPRESSION 1. ASHD with ischemic cardiomyopathy and severe left ventricular dysfunction. 2. Acute systolic congestive heart failure, currently Compensated. 3. Hypertensive heart disease 4. Chronic kidney disease 5. Hyperlipidemia 6. Diabetes mellitus 7. COPD 8. OBS 9. Advanced age 10. Moderate to severe mitral regurgitation. RECOMMENDATIONS We will continue a conservative management approach after discussion with the patient and her . She has improved with intravenous diuresis. I will switch her intravenous Lasix over to Lasix 20 mg p.o. daily, as well as spironolactone 25 mg p.o. daily. Discontinue topical nitrates and continue with isosorbide. I have reduced her aspirin dose to 81 mg daily to avoid potential bleeding complications with DAPT therapy. Ramipril 1.25 mg p.o. b.i.d. has also been instituted as tolerated by blood pressure for afterload reduction. I think we can discontinue her subcutaneous heparin and discharge her back to the [facility]cc today or tomorrow morning if no other medical issues need to be addressed here. I have a follow-up appointment with her within the next two weeks as well in the office. Discussed the plans with the patient in the family and the in detail. Her electrolytes and renal function need to be followed closely at home with her new medical regimen to avoid any potassium abnormalities or dehydration. Thank you for allowing us to participate in the care of this patient. MD BEVERLY Knox/CYNDEE /9:13 AM /9:50 AM
[2016-12-26] MEDS ORDERED: MAGNESIUM OXIDE 400 MG TAB PO SCH (12:00)
[2016-12-26 12:30] VITALS: BP 109/59; PULSE 77; RESP 16; TEMP 97.5; O2SAT 96
[2016-12-26] MEDS: SERTRALINE HCL 100 MG TAB PO SCH (13:07)
[2016-12-26] MEDS ORDERED: RAMI1.252 PO (13:47)
[2016-12-26] MEDS ORDERED: Spironolactone PO (13:47)
[2016-12-26] MEDS ORDERED: ASPI81TA11 PO (13:47)
[2016-12-26] MEDS ORDERED: FURO20TA PO (13:47)
--- NOTE | 2016-12-26 13:48 | HHI.DCPOC ---
Discharge Care Plan Diagnosis: (1) Acute exacerbation of CHF (congestive heart failure) (2) Acute kidney injury Your Health Problems Are: Shortness of Breath Goals to Promote Your Health * To prevent worsening of your condition and complications * To maintain your health at the optimal level Directions to Meet Your Goals Take your medications as prescribed Follow your dietary instruction Follow activity as directed Keep your appointments as scheduled Take your immunizations and boosters as scheduled If your symptoms worsen call your PCP, if no PCP go to Urgent Care Center or Emergency Room Smoking is Dangerous to Your Health. Avoid second hand smoke Call the 24-hour hour crisis hotline for domestic abuse at Alanna Poole PA-C Dec 26, 2016 13:48
[2016-12-26 16:15] VITALS: BP 106/58; PULSE 86; RESP 16; TEMP 97.2; O2SAT 96
[2016-12-27] MEDS ORDERED: FUROSEMIDE 20 MG TAB PO SCH (09:00)
== END 2016-12-26 18:20 | disposition home or self-care (01) ==
LOC: NEPC 07:52 → NEDA 10:18 → NEPGCP 12:18
PROVIDERS: ADMIT Internal Medicine; ATTEND Internal Medicine
DX: E78.5 Hyperlipidemia, unspecified (principal); I13.0 Hypertensive heart and chronic kidney disease with heart failure and stage 1 through stage 4 chronic kidney disease, or unspecified chronic kidney disease; E11.22 Type 2 diabetes mellitus with diabetic chronic kidney disease; I50.23 Acute on chronic systolic (congestive) heart failure; N18.9 Chronic kidney disease, unspecified; F03.90 Unspecified dementia, unspecified severity, without behavioral disturbance, psychotic disturbance, mood disturbance, and anxiety; I25.10 Atherosclerotic heart disease of native coronary artery without angina pectoris; F41.9 Anxiety disorder, unspecified; E03.9 Hypothyroidism, unspecified; D64.9 Anemia, unspecified; N17.9 Acute kidney failure, unspecified; R06.01 Orthopnea; R26.81 Unsteadiness on feet; I25.5 Ischemic cardiomyopathy; I34.0 Nonrheumatic mitral (valve) insufficiency; Z66 Do not resuscitate
CPT/HCPCS: 71010; 78582; 80048; 80053; 82948; 83735; 83880; 84484; 85025; 85379; 85610; 85730; 93005; 93306; 96374; 97162; 99285; A9540; A9567; G0378; G8987; G8988; J1644; J1815; J1940

== ENCOUNTER 2017-08-07 09:12 | Emergency (ER) | payer MEDICARE ==
[~2017-08-07 09:12] MED LIST changes: +ACET1CAP18 PO; -ASPI-110 PO; +ASPI81TA11 PO; +FURO20TA PO; -LIPI20TA PO; -MAGN400T2 PO; +MAGN500T2 PO; +MECL12.574 PO; -NYST1000 SWISH-SWAL; +RAMI1.252 PO; -SUCR1S PO; +Spironolactone PO
[2017-08-07 09:20] VITALS: BP 114/72; PULSE 76; RESP 15; TEMP 97.4; O2SAT 99
--- NOTE | 2017-08-07 09:21 | PD ---
HPI Chief Complaint: Hypoglycemia Time Seen by Provider: 09:17 Travel History International Travel<30 days: No Contact w/Intl Traveler<30days: No History of Present Illness HPI 87yo F with PMH of CAD, HTN, DM, HLD brought in by [facility] for hypoglycemia. Pt is from a long term and was given lantus 20 units at 6am. As per [facility], that is her normal medication. Pt was found to be unresponsive and blood glucose was 17 so [facility] gave 25gm of D10. Pt became AAOx3 and is now back to baseline. Pt did not eat her breakfast. Upon review of systems, she said she has been feeling intermittent nausea but no nausea now. Also has dysuria for a few days. Said she is mainly wheelchair bound. Denies any fever, chest pain, sob, n/v, abdominal pain, focal weakness or numbness. Pt did not fall and has no signs of trauma. Blood glucose here is 78. PFSH Past Medical History Arthritis: Yes Anxiety: Yes Depression: Yes Cancer: No Cardiac Catheterization: Yes (04/2016) Cardiovascular Problems: Yes High Cholesterol: Yes Chest Pain: Yes Congestive Heart Failure: Yes Dementia: Yes Diabetes: Yes Diminished Hearing: No Endocrine: Yes Gastrointestinal Disorders: Yes GERD: Yes Genitourinary: No Headaches: Yes Hypertension: Yes Implanted Vascular Access Dvce: No Musculoskeletal: Yes Neurologic: Yes (Dementia) Psychiatric: Yes Reproductive: No Respiratory: No Immunizations Current: No Pneumonia: Yes Thyroid Disease: Yes Menopausal: Yes : 6 Para: 5 Miscarriage: 1 Tubal Ligation: Yes Past Surgical History Eye Surgery: Yes Thoracic Surgery: Yes Tonsillectomy: Yes Other Surgery: Yes (BACK SX. AND HEMMROIDECTOMY) Social History Alcohol Use: No Tobacco Use: No (QUIT) Substance Use: No Allergies-Medications (Allergen,Severity, Reaction): Coded Allergies: Sulfa (Sulfonamide Antibiotics) (Unverified Allergy, Intermediate, Rash, 08/07/17) nitrofurantoin (Unverified Allergy, Unknown, 08/07/17) hydrocodone (Unverified Adverse Reaction, Mild, nausea, 08/07/17) Reported Meds & Prescriptions Reported Meds & Active Scripts Active [Spironolactone] 25 MG Tab 25 Mg PO DAILY Aspirin EC (Aspirin) 81 Mg Tabdr 81 Mg PO DAILY Reported Nitrostat SL (Nitroglycerin) 0.4 Mg Subl 0.4 Mg SL DIRECTED PRN 1 tablet under the tongue as needed for chest pain. Repeat every 5 minutes for a total of 3 DOSES or call 911 if NO relief. Tylenol (Acetaminophen) 325 Mg Tab 650 Mg PO Q6H PRN Humalog Inj (Insulin Human Lispro) 1,000 Unit/10 Ml Vial 3-7 Units SQ BID PRN Lisinopril 5 Mg Tab 5 Mg PO DAILY Levothyroxine (Levothyroxine Sodium) 100 Mcg Tab 100 Mcg PO DAILY Lantus Inj (Insulin Glargine) 1,000 Unit/10 Ml Vial 20 Units SQ DAILY Furosemide 20 Mg Tab 20 Mg PO DIRECTED Ferrous Sulfate DR (Ferrous Sulfate) 324 Mg Tabdr 324 Mg PO DAILY Dexilant (Dexlansoprazole) 60 Mg Cap.dr.bp 60 Mg PO DAILY Zoloft (Sertraline HCl) 100 Mg Tab 100 Mg PO DAILY @ 1400 Isosorbide Dinitrate 5 Mg Tab 5 Mg PO TID Clopidogrel (Clopidogrel Bisulfate) 75 Mg Tab 75 Mg PO DAILY Carvedilol 6.25 Mg Tab 6.25 Mg PO BID Wellbutrin SR 12 HR (Bupropion HCl) 150 Mg Tab 150 Mg PO DAILY Review of Systems Except as stated in HPI: all other systems reviewed are Neg Physical Exam Narrative GENERAL: 87yo F not in distress. SKIN: Focused skin assessment warm/dry. HEAD: Atraumatic. Normocephalic. EYES: Pupils equal and round. No scleral icterus. No injection or drainage. ENT: No nasal bleeding or discharge. Mucous membranes pink and moist. NECK: Trachea midline. No JVD. CARDIOVASCULAR: Regular rate and rhythm. No murmur appreciated. RESPIRATORY: No accessory muscle use. Clear to auscultation. Breath sounds equal bilaterally. GASTROINTESTINAL: Abdomen soft, non-tender, nondistended. MUSCULOSKELETAL: No obvious deformities. No clubbing. No cyanosis. No edema. NEUROLOGICAL: Awake and alert. No obvious cranial nerve deficits. Motor grossly within normal limits. Normal speech. AAOx3. PSYCHIATRIC: Appropriate mood and affect; insight and judgment normal. Data Data Last Documented VS Vital Signs Date Time Temp Pulse Resp B/P (MAP) Pulse Ox O2 Delivery O2 Flow Rate FiO2 08/07/17 11:39 74 15 122/64 (83) 98 08/07/17 09:20 97.4 Orders Orders Electrocardiogram (08/07/17 ) Complete Blood Count With Diff (08/07/17 09:17) Basic Metabolic Panel (Bmp) (08/07/17 09:17) Urinalysis - C+S If Indicated (08/07/17 09:17) Blood Glucose (08/07/17 09:17) Dextrose 50% In [place] (Vial) Inj (D50w (Vi (08/07/17 09:45) Dextrose 50% In [place] (Vial) Inj (D50w (Vi (08/07/17 10:00) Blood Glucose (08/07/17 10:21) Blood Glucose (08/07/17 11:24) Labs Laboratory Tests Test 08/07/17 09:40 08/07/17 10:48 White Blood Count 8.9 TH/MM3 Red Blood Count 3.57 MIL/MM3 Hemoglobin 11.3 GM/DL Hematocrit 33.1 % Mean Corpuscular Volume 92.8 FL Mean Corpuscular Hemoglobin 31.6 PG Mean Corpuscular Hemoglobin Concent 34.1 % Red Cell Distribution Width 16.1 % Platelet Count 285 TH/MM3 Mean Platelet Volume 6.9 FL Neutrophils (%) (Auto) 75.2 % Lymphocytes (%) (Auto) 12.8 % Monocytes (%) (Auto) 6.4 % Eosinophils (%) (Auto) 3.4 % Basophils (%) (Auto) 2.2 % Neutrophils # (Auto) 6.7 TH/MM3 Lymphocytes # (Auto) 1.1 TH/MM3 Monocytes # (Auto) 0.6 TH/MM3 Eosinophils # (Auto) 0.3 TH/MM3 Basophils # (Auto) 0.2 TH/MM3 CBC Comment DIFF FINAL Differential Comment Blood Urea Nitrogen 33 MG/DL Creatinine 1.60 MG/DL Random Glucose 24 MG/DL Calcium Level 9.1 MG/DL Sodium Level 138 MEQ/L Potassium Level 3.7 MEQ/L Chloride Level 106 MEQ/L Carbon Dioxide Level 24.8 MEQ/L Anion Gap 7 MEQ/L Estimat Glomerular Filtration Rate 31 ML/MIN Urine Collection Type CLEAN CATCH Urine Color YELLOW Urine Turbidity CLEAR Urine pH 5.5 Urine Specific [place] 1.014 Urine Protein NEG mg/dL Urine Glucose (UA) NEG mg/dL Urine Ketones NEG mg/dL Urine Occult Blood TRACE Urine Nitrite NEG Urine Bilirubin NEG Urine Leukocyte Esterase TRACE Urine RBC 4-9 /hpf Urine WBC 3-5 /hpf Urine Squamous Epithelial Cells 0-5 /hpf Urine Bacteria FEW /hpf Microscopic Urinalysis Comment CULT NOT INDICATED Urine Collection Time 10:48 [facility] Medical Decision Making Medical Screen Exam Complete: Yes Emergency Medical Condition: Yes Interpretation(s) EKG: NSR 82bpm. Normal axis. Differential Diagnosis Hypoglycemia secondary to insulin and no breakfast vs. UTI Narrative Course 87yo F with DM was brought in by [facility] from [facility] after she was found unresponsive after insulin this morning. Pt was hypoglycemic with blood glucose of 17 and became her usual self after administration of D10. Pt does complain of some dysuria so will check UA. She is well appearing and not in distress currently. She is AAOX3 and following commands. Will check labs, EKG, and feed patient. Will observe pt in the ED and recheck blood glucose. Pt was getting food and I was informed by nurse that pt was getting more sleepy so glucose was recheck and it was 24. Pt given 1 amp of D50. Pt reevaluated and is now more awake. Pt was only given lantus 20 units and no oral sulfonylureas. Pt was just starting to get food when her glucose was found to be 24 so she was fed after she became more awake with 1 amp of D50. Labs reviewed, no leukocytosis. H/H low at 11.3/33.1 which is her baseline. Glucose 24. This was addressed with the amp of D50. Creatinine is mildly elevated at 1.60 which is slightly more than prior at 1.49. Pt also given a tray of breakfast and ate the entire tray and was still hungry so a second tray was ordered. Repeat blood glucose 139. Pt observed in the ED for 3 hours and has been alert and oriented and feeling fine since she received 1 amp of D50. Repeat blood glucose 156. Pt ate 2 trays of food and feeling better. UA negative for WBC. Culture not indicated. At this time, I feel that long term staff should be educated to make sure that pt needs to eat when given medication and to make sure she eats. She does say she does not really like the long term food. Pt's is at bedside and said he will bring her food when she requests it. Will transport pt back to long term. Return precautions given. Diagnosis Primary Impression: Hypoglycemia Patient Instructions: General Instructions Departure Forms: Tests/Procedures Additional Instructions: Please make sure that patient eats when administering insulin. Return to the ED if symptoms worsen. Please follow up with primary care physician for possible adjustment of your diabetic medications. Med/Other Pt SpecificInfo: No Change to Meds Disposition: 01 DISCHARGE HOME Condition: Stable KimiAngela DO Aug 07, 2017 09:21
[2017-08-07] MEDS ORDERED: DEXTROSE 50% IN WATER 50 ML VIAL(D50) ONE (09:45)
[2017-08-07 09:54] LABS: AUTOMATED NEUTROPHIL # 6.7 TH/MM3 (1.8-7.7); BASOPHIL # 0.2 TH/MM3 (0-0.2); BASOPHIL % 2.2 % (0.0-2.0); EOSINOPHIL # 0.3 TH/MM3 (0-0.4); EOSINOPHIL % 3.4 % (0.0-4.0); HEMATOCRIT 33.1 % (35.0-46.0); LYMPH % 12.8 % (9.0-44.0); LYMPHOCYTE # 1.1 TH/MM3 (1.0-4.8); MEAN CELL VOLUME 92.8 FL (80.0-100.0); MEAN CORPUSCULAR HEMOGLOBIN 31.6 PG (27.0-34.0); MEAN CORPUSCULAR HGB CONC 34.1 % (32.0-36.0); MONO % 6.4 % (0.0-8.0); NEUT % 75.2 % (16.0-70.0); PLATELET COUNT 285 TH/MM3 (150-450); RED BLOOD COUNT 3.57 MIL/MM3 (4.00-5.30); RED CELL DISTRIBUTION WIDTH 16.1 % (11.6-17.2); WHITE BLOOD COUNT 8.9 TH/MM3 (4.0-11.0)
[2017-08-07 09:56] LABS: HEMO FLAGS DIFF FINAL
[2017-08-07] MEDS ORDERED: DEXTROSE 50% IN WATER 50 ML VIAL(D50) IV PUSH ONE (10:00)
[2017-08-07 10:14] LABS: BICARBONATE 24.8 MEQ/L (21.0-32.0)
[2017-08-07] MEDS ORDERED: FURO20TA PO (10:18)
[2017-08-07] MEDS ORDERED: LANTUS2P SQ (10:18)
[2017-08-07] MEDS ORDERED: DEXI60CA2 PO (10:18)
[2017-08-07] MEDS ORDERED: NITR0.4S SL (10:18)
[2017-08-07] MEDS ORDERED: TYLE325T PO (10:18)
[2017-08-07] MEDS ORDERED: LEVO100T5 PO (10:18)
[2017-08-07] MEDS ORDERED: FERR324T4 PO (10:18)
[2017-08-07] MEDS ORDERED: HUMALOG SQ (10:18)
[2017-08-07] MEDS ORDERED: LISI-519 PO (10:18)
[2017-08-07 10:23] LABS: POTASSIUM 3.7 MEQ/L (3.5-5.1)
[2017-08-07 10:52] LABS: GLUCOSE,URINE NEG (NEG); KETONE, URINE NEG (NEG); NITRITE,URINE NEG (NEG); PH, URINE 5.5 (5.0-8.5)
[2017-08-07 10:54] LABS: BLOOD, URINE TRACE (NEG)
[2017-08-07 11:04] LABS: METHOD OF COLLECTION CLEAN CATCH
[2017-08-07 11:05] LABS: BACTERIA, URINE FEW /hpf; COMMENT (UR) CULT NOT INDICATED; CULTURE IF INDICATED CULT NOT INDICATED; SQUAMOUS EPITHELIAL CELL URINE 0-5 /hpf (0-5); URINE COLOR YELLOW (YELLW/STRAW)
[2017-08-07 11:39] VITALS: BP 122/64; PULSE 74; RESP 15; O2SAT 98
--- NOTE | 2017-08-08 12:31 | EKG ---
Date Performed: 08/07/2017 Time Performed: 09:26:48 PTAGE: 87 years EKG: Sinus rhythm MINIMAL ST DEPRESSION BORDERLINE ECG PREVIOUS TRACING : 12/25/2016 08.06 Consider anterolateral ischemia. DOCTOR: Will Hobson Interpretating Date/Time 08/08/2017 12:30:58
== END 2017-08-07 13:43 | disposition home or self-care (01) ==
LOC: PHED 09:12
DX: E11.649 Type 2 diabetes mellitus with hypoglycemia without coma (principal); E78.00 Pure hypercholesterolemia, unspecified; F03.90 Unspecified dementia, unspecified severity, without behavioral disturbance, psychotic disturbance, mood disturbance, and anxiety; I11.0 Hypertensive heart disease with heart failure; I25.10 Atherosclerotic heart disease of native coronary artery without angina pectoris; I50.9 Heart failure, unspecified; K21.9 Gastro-esophageal reflux disease without esophagitis; Z79.4 Long term (current) use of insulin
CPT/HCPCS: 80048; 81001; 85025; 93005; 96374

== ENCOUNTER 2018-01-25 00:54 | Emergency (ER) | payer MEDICARE ==
[~2018-01-25] VITALS: Ht 165.1 cm; Wt 52.3 kg
[2018-01-25 00:54] VITALS: BP 95/46; PULSE 75; RESP 18; TEMP 97.7; O2SAT 94
[~2018-01-25 00:54] MED LIST changes: -ACET1CAP18 PO; -ASPI81TA11 PO; +ASPI81TA23 PO; -DEXI60CA PO; +DEXI60CA3 PO; +FERR324T4 PO; -FERR325T PO; +HUMALOG SQ; -JANU50TA8 PO; +LANTUS2P SQ; +LISI-519 PO; -MAGN500T2 PO; -MECL12.574 PO; -MEGE40S PO; +NITR0.4S SL; -RAMI1.252 PO; +TYLE325T PO
[2018-01-25 02:13] VITALS: BP 110/54; PULSE 71; O2SAT 95
[2018-01-25] MEDS ORDERED: VITA500T83 PO (03:47)
[2018-01-25] MEDS ORDERED: RANI150T PO (03:47)
[2018-01-25] MEDS ORDERED: LIDO16CR TOPICAL (03:47)
[2018-01-25 03:50] LABS: CHLORIDE 103 MEQ/L (98-107); SODIUM (NA) 138 MEQ/L (136-145)
[2018-01-25] MEDS ORDERED: ONDA4TAB15 (03:50)
[2018-01-25] MEDS ORDERED: TRAM50TA PO (03:50)
[2018-01-25] MEDS ORDERED: ZOFR4TAB PO (03:50)
[2018-01-25 03:53] LABS: AUTOMATED NEUTROPHIL # 5.1 TH/MM3 (1.8-7.7); BASOPHIL % 0.4 % (0.0-2.0); CALCIUM 8.3 MG/DL (8.5-10.1); EOSINOPHIL # 0.2 TH/MM3 (0-0.4); EOSINOPHIL % 3.3 % (0.0-4.0); HEMATOCRIT 31.9 % (35.0-46.0); HEMOGLOBIN 10.4 GM/DL (11.6-15.3); LYMPH % 14.9 % (9.0-44.0); MEAN CELL VOLUME 93.9 FL (80.0-100.0); MEAN CORPUSCULAR HEMOGLOBIN 30.6 PG (27.0-34.0); MEAN CORPUSCULAR HGB CONC 32.6 % (32.0-36.0); MEAN PLATELET VOLUME 7.8 FL (7.0-11.0); MONO % 5.3 % (0.0-8.0); MONOCYTE # 0.4 TH/MM3 (0-0.9); NEUT % 76.1 % (16.0-70.0); PLATELET COUNT 210 TH/MM3 (150-450); RED CELL DISTRIBUTION WIDTH 14.3 % (11.6-17.2); WHITE BLOOD COUNT 6.7 TH/MM3 (4.0-11.0)
[2018-01-25 03:54] LABS: ALBUMIN 3.3 GM/DL (3.4-5.0); BICARBONATE 26.3 MEQ/L (21.0-32.0); BLOOD UREA NITROGEN 29 MG/DL (7-18); GLUCOSE,RANDOM 149 MG/DL (74-106)
[2018-01-25 03:57] LABS: ALT (GPT) 12 U/L (10-53); AST (GOT) 27 U/L (15-37); GLOMERULAR FILTRATION RATE 33 ML/MIN (>89)
[2018-01-25 03:58] LABS: TOTAL BILIRUBIN ADULT 0.3 MG/DL (0.2-1.0); TOTAL PROTEIN 6.6 GM/DL (6.4-8.2)
[2018-01-25 04:00] LABS: ALKALINE PHOSPHATASE 63 U/L (45-117)
[2018-01-25 04:54] VITALS: BP 105/53; PULSE 64; RESP 18; TEMP 98.5; O2SAT 95
--- NOTE | 2018-01-25 05:30 | PD ---
HPI Chief Complaint: GI Complaint Time Seen by Provider: 05:28 Travel History International Travel<30 days: No Contact w/Intl Traveler<30days: No Traveled to known affect area: No History of Present Illness HPI The patient is an 87-year-old female that has had nausea and vomiting for the past 3 days. Yesterday she had diarrhea. She noticed dark stools and has been vomiting up dark material. She does take iron pills. PFSH Past Medical History Anemia: Yes (IRON DEFICIENCY) Arthritis: Yes Anxiety: Yes Depression: Yes Cancer: No Cardiac Catheterization: Yes (04/2016) Cardiovascular Problems: Yes High Cholesterol: Yes Chest Pain: Yes Congestive Heart Failure: Yes Coronary Artery Disease: Yes Dementia: Yes (UNSPECIFIED) Diabetes: Yes (TYPE 2) Patient Takes Glucophage: No Diminished Hearing: No Endocrine: Yes Gastrointestinal Disorders: Yes (DIVERTICULOSIS) GERD: Yes Genitourinary: No Headaches: Yes Hypertension: Yes Implanted Vascular Access Dvce: No Medical other: Yes (VERTIGO) Musculoskeletal: Yes (MUSCLE WEAKNESS (GENERALIZED), OSTEOARTHRITIS) Neurologic: Yes (Dementia) Psychiatric: Yes Reproductive: No Respiratory: No Immunizations Current: No Pneumonia: Yes Thyroid Disease: Yes (HYPOTHYROIDISM) Ulcer: Yes (PEPTIC) ?: Not Menopausal: Yes : 6 Para: 5 Miscarriage: 1 Tubal Ligation: Yes Past Surgical History Eye Surgery: Yes Thoracic Surgery: Yes Tonsillectomy: Yes Other Surgery: Yes (BACK SX. AND HEMORROIDECTOMY) Social History Alcohol Use: No Tobacco Use: No (QUIT) Substance Use: No Allergies-Medications (Allergen,Severity, Reaction): Coded Allergies: Sulfa (Sulfonamide Antibiotics) (Unverified Allergy, Intermediate, Rash, ) nitrofurantoin (Unverified Allergy, Unknown, 01/25/18) hydrocodone (Unverified Adverse Reaction, Mild, nausea, 01/25/18) Reported Meds & Prescriptions Reported Meds & Active Scripts Active Aspirin EC (Aspirin) 81 Mg Tabdr 81 Mg PO DAILY Reported Tramadol (Tramadol HCl) 50 Mg Tab 50 Mg PO Q6H PRN Zofran (Ondansetron HCl) 4 Mg Tab 4 Mg PO Q6HR PRN Ondansetron (Ondansetron HCl) 4 Mg Tab Aspercreme w/ Lidocaine Topical (Lidocaine) 4 % Cream 1 Applic TOPICAL Q12HR PRN Vitamin C ER (Ascorbic Acid) 500 Mg Joel 500 Mg PO BID Ranitidine (Ranitidine HCl) 150 Mg Tab 150 Mg PO BID Nitrostat SL (Nitroglycerin) 0.4 Mg Subl 0.4 Mg SL DIRECTED PRN 1 tablet under the tongue as needed for chest pain. Repeat every 5 minutes for a total of 3 DOSES or call 911 if NO relief. Tylenol (Acetaminophen) 325 Mg Tab 650 Mg PO Q6H PRN Humalog Inj (Insulin Human Lispro) 1,000 Unit/10 Ml Vial 3-7 Units SQ BID PRN Lisinopril 5 Mg Tab 5 Mg PO DAILY Levothyroxine (Levothyroxine Sodium) 100 Mcg Tab 100 Mcg PO DAILY Lantus Inj (Insulin Glargine) 1,000 Unit/10 Ml Vial 16 Units SQ DAILY Furosemide 20 Mg Tab 20 Mg PO DIRECTED Ferrous Sulfate DR (Ferrous Sulfate) 324 Mg Tabdr 325 Mg PO TID Dexilant (Dexlansoprazole) 60 Mg Cap.dr.bp 60 Mg PO DAILY Zoloft (Sertraline HCl) 100 Mg Tab 150 Mg PO HS Isosorbide Dinitrate 5 Mg Tab 5 Mg PO TID Clopidogrel (Clopidogrel Bisulfate) 75 Mg Tab 75 Mg PO DAILY Carvedilol 6.25 Mg Tab 12.5 Mg PO BID Wellbutrin SR 12 HR (Bupropion HCl) 150 Mg Tab 150 Mg PO DAILY Review of Systems Except as stated in HPI: all other systems reviewed are Neg Physical Exam Narrative GENERAL: The patient is alert, oriented 3 in no apparent distress. Her vital signs show blood pressure 95/46 and oximetry 94% but are otherwise normal. She does appear slightly dehydrated. SKIN: Focused skin assessment warm/dry. HEAD: Atraumatic. Normocephalic. EYES: Pupils equal and round. No scleral icterus. No injection or drainage. ENT: No nasal bleeding or discharge. Mucous membranes pink and moist. NECK: Trachea midline. No JVD. CARDIOVASCULAR: Regular rate and rhythm. No murmur appreciated. RESPIRATORY: No accessory muscle use. Clear to auscultation. Breath sounds equal bilaterally. GASTROINTESTINAL: Abdomen soft, non-tender, nondistended. Hepatic and splenic margins not palpable. MUSCULOSKELETAL: No obvious deformities. No clubbing. No cyanosis. No edema. NEUROLOGICAL: Awake and alert. No obvious cranial nerve deficits. Motor grossly within normal limits. Normal speech. PSYCHIATRIC: Appropriate mood and affect; insight and judgment normal. Data Data Last Documented VS Vital Signs Date Time Temp Pulse Resp B/P (MAP) Pulse Ox O2 Delivery O2 Flow Rate FiO2 01/25/18 04:54 98.5 64 18 105/53 (70) 95 01/25/18 02:13 Room Air Orders Orders Complete Blood Count With Diff (01/25/18 02:38) Comprehensive Metabolic Panel (01/25/18 02:38) Urinalysis - C+S If Indicated (01/25/18 02:38) Sodium Chlor 0.9% 1000 Ml Inj (Ns 1000 M (01/25/18 05:45) Lipase (01/25/18 05:45) Labs Laboratory Tests Test 01/25/18 01:10 01/25/18 05:05 01/25/18 05:50 White Blood Count 6.7 TH/MM3 Red Blood Count 3.40 MIL/MM3 Hemoglobin 10.4 GM/DL Hematocrit 31.9 % Mean Corpuscular Volume 93.9 FL Mean Corpuscular Hemoglobin 30.6 PG Mean Corpuscular Hemoglobin Concent 32.6 % Red Cell Distribution Width 14.3 % Platelet Count 210 TH/MM3 Mean Platelet Volume 7.8 FL Neutrophils (%) (Auto) 76.1 % Lymphocytes (%) (Auto) 14.9 % Monocytes (%) (Auto) 5.3 % Eosinophils (%) (Auto) 3.3 % Basophils (%) (Auto) 0.4 % Neutrophils # (Auto) 5.1 TH/MM3 Lymphocytes # (Auto) 1.0 TH/MM3 Monocytes # (Auto) 0.4 TH/MM3 Eosinophils # (Auto) 0.2 TH/MM3 Basophils # (Auto) 0.0 TH/MM3 CBC Comment DIFF FINAL Differential Comment Blood Urea Nitrogen 29 MG/DL Creatinine 1.50 MG/DL Random Glucose 149 MG/DL Total Protein 6.6 GM/DL Albumin 3.3 GM/DL Calcium Level 8.3 MG/DL Alkaline Phosphatase 63 U/L Aspartate Amino Transf (AST/SGOT) 27 U/L Alanine Aminotransferase (ALT/SGPT) 12 U/L Total Bilirubin 0.3 MG/DL Sodium Level 138 MEQ/L Potassium Level 4.5 MEQ/L Chloride Level 103 MEQ/L Carbon Dioxide Level 26.3 MEQ/L Anion Gap 9 MEQ/L Estimat Glomerular Filtration Rate 33 ML/MIN Urine Collection Type CLEAN CATCH Urine Color YELLOW Urine Turbidity CLEAR Urine pH 5.5 Urine Specific [place] 1.020 Urine Protein TRACE mg/dL Urine Glucose (UA) NEG mg/dL Urine Ketones TRACE mg/dL Urine Occult Blood NEG Urine Nitrite NEG Urine Bilirubin NEG Urine Urobilinogen 0.2 MG/DL Urine Leukocyte Esterase NEG Urine RBC 0-3 /hpf Urine WBC 0-2 /hpf Urine Squamous Epithelial Cells 0-5 /hpf Urine Amorphous Sediment FEW Microscopic Urinalysis Comment CULT NOT INDICATED Lipase 160 U/L MDM Medical Decision Making Medical Screen Exam Complete: Yes Emergency Medical Condition: Yes Medical Record Reviewed: Yes Interpretation(s) The CBC is normal except for hemoglobin of 10.4 and hematocrit of 31.9. The complete metabolic profile shows a BUN of 29, creatinine 1.5, GFR of 33, albumin 3.3, calcium 8.3, glucose of 149. The lipase is normal. Differential Diagnosis Gastroenteritis, gastritis, viral syndrome, dehydration, anemia, electrolyte disorder Narrative Course The patient likely has a gastroenteritis. She is not nauseated now but says she can get nauseated quickly. She will be given Zofran 8 mg to take regularly , 3 times a day to hopefully prevent her bouts of nausea. She is to follow-up with her primary care physician. Diagnosis Primary Impression: Gastroenteritis Additional Instructions: Follow-up with your primary care physician this week. The Zofran is taken regularly, 1 3 times daily to prevent the bouts of sudden nausea that she has been getting. Make sure you increase her liquid intake to hydrate yourself. Med/Other Pt SpecificInfo: Prescription(s) given Scripts Ondansetron (Zofran) 8 Mg Tab 8 MG PO TID, #30 TAB 0 Refills Prov: Abdi Guzman MD 01/25/18 Disposition: DISCHARGE HOME Condition: Stable Abdi Guzman MD Jan 25, 2018 05:30
[2018-01-25] MEDS: SODIUM CHLOR 0.9% 1000 ML INJ 1,000 ML IV SCH ×2 (05:56→06:19)
[2018-01-25 06:01] LABS: BILIRUBIN, URINE NEG (NEG); BLOOD, URINE NEG (NEG); GLUCOSE,URINE NEG (NEG); KETONE, URINE TRACE mg/dL (NEG); NITRITE,URINE NEG (NEG); PH, URINE 5.5 (5.0-8.5); URINE COLOR YELLOW (YELLW/STRAW); URINE LEUKOCYTE ESTERASE NEG (NEG)
[2018-01-25 06:13] LABS: RBC, URINE 0-3 /hpf (0-3); SQUAMOUS EPITHELIAL CELL URINE 0-5 /hpf (0-5); WBC, URINE 0-2 /hpf (0-5)
[2018-01-25 06:14] LABS: AMORPHOUS SEDIMENT, URINE FEW
[2018-01-25] MEDS ORDERED: ZOFR8TAB PO (06:49)
[2018-01-25 07:40] VITALS: BP 126/62; PULSE 80; RESP 16; O2SAT 96
== END 2018-01-25 09:33 | disposition home or self-care (01) ==
LOC: PHED 00:54
DX: K52.9 Noninfective gastroenteritis and colitis, unspecified (principal); D50.9 Iron deficiency anemia, unspecified; I11.0 Hypertensive heart disease with heart failure; I50.9 Heart failure, unspecified; E11.9 Type 2 diabetes mellitus without complications; F03.90 Unspecified dementia, unspecified severity, without behavioral disturbance, psychotic disturbance, mood disturbance, and anxiety; I25.10 Atherosclerotic heart disease of native coronary artery without angina pectoris; E03.9 Hypothyroidism, unspecified; E78.00 Pure hypercholesterolemia, unspecified
CPT/HCPCS: 80053; 81001; 83690; 85025; 96360; 96361; 99284; J7030